=== PATIENT | male | born 1950 | race Caucasian/White ===

== ENCOUNTER 2019-12-22 16:32 | Inpatient (IN) | payer MEDICARE ==
--- OUTSIDE RECORDS SUMMARY | 2019-12-22 17:09 | XMS REPORT | Clinical Summary ---
:1950 Author Organization [facility] Address [address] [place] [address] Care Team Providers Name Role Phone Pcp Primary Care Provider Unavailable Allergies Active Allergy Reactions Severity Noted Date Comments Lisinopril Itching High 12/15/2019 RASH Medications Medication Sig Dispensed Refills Start Date End Date Status atorvastatin (LIPITOR) Take 80 mg by 0 Active 80 MG tablet mouth daily. alendronate (FOSAMAX) Take 35 mg by 0 Active 35 MG tablet mouth every 7 days Take in the morning with a full glass of water, on an empty stomach, and do not take anything else by mouth or lie down for the next 30 min. . clopidogreL (PLAVIX) 75 Take 75 mg by 0 Active mg tablet mouth daily. aspirin 81 MG EC tablet Take 81 mg by 0 Active mouth daily. hydroxychloroquine Take by mouth 0 Active (PLAQUENIL) 200 mg daily. tablet losartan (COZAAR) 100 Take 100 mg by 0 Active MG tablet mouth daily. metoprolol tartrate Take 25 mg by 0 Active (LOPRESSOR) 25 MG mouth 2 (two) tablet times daily. predniSONE (DELTASONE) Take 5 mg by 0 Active 5 MG tablet mouth daily. tamsulosin (FLOMAX) 0.4 Take 0.4 mg by 0 Active mg Cap 24 hr capsule mouth daily. pantoprazole (PROTONIX) Take 20 mg by 0 Active 20 MG tablet mouth daily. methotrexate 2.5 MG Take by mouth 0 Active tablet once a week. folic acid (FOLVITE) 1 Take 1 mg by 0 Active MG tablet mouth daily. etanercept (ENBREL Inject 0 A ctive SUBQ)Indications: once subcutaneously. every 2 weeks acetaminophen (TYLENOL) Take 2 tablets 30 tablet 0 12/21/2019 Active 325 MG tablet (650 mg total) by 0 mouth every 6 (six) hours as needed for Pain for up to 10 days. docusate sodium Take 1 capsule 10 capsule 0 12/21/2019 02 Active (COLACE) 100 MG capsule (100 mg total) by 0 mouth 2 (two) times daily as needed for Constipation for up to 10 days. traMADoL (ULTRAM) 50 mg Take 1 tablet (50 28 tablet 0 12/21/19 20 Active tablet mg total) by 0 mouth every 6 (six) hours as needed for up to 10 days. Max Daily Amount: 200 mg gabapentin (NEURONTIN) Take 1 capsule 30 capsule 0 12/21/2019 Active 100 MG capsule (100 mg total) by 0 mouth 3 (three) times daily for 10 days. 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 12/20/201912/19 Encounters Date Type Specialty Care Team Description 12/22/2019 Outside Orders [facility] Val[place]il, Woody Mass of upp er lobe of right lung (Primary Dx); Scheduling ALLISON Roman Post-operative state 12/20/2019 Surgery Jeffy Carrera THORACOSCOPY Dylon Chun, (VATS),LOBE CTOMY W/ OR W/OUT LYMPADENECTOMY 12/20/2019 Anesthesia Event Ranjeet Curiel 12/20/2019 - Hospital Intensive Care Jeffy Carrera 12/21/2019 Encounter Dylon Chun MD 12/15/2019 [facility] Cardiology Jeffy Carrera Jr., MD 12/15/2019 Hospital Pre-Admission Jeffy Carrera Pre-op test ing Encounter Testing Dylon Chun MD 12/15/2019 Hospital Pre-Admission Encounter Testing 12/15/2019 [facility] Jeffy Carrera Jr., MD 12/15/2019 Travel 12/12/2019 Orders Only Intensive Care Valayil, Woody Pre-op test ALLISON Mcgrath (Primary Dx) after 12/21/2018 Social History Tobacco Use Types Packs/Day Years Used Date Former Smoker 1 30 Quit: 06/26/20 Smokeless Tobacco: Never Used Alcohol Use Drinks/Week oz/Week Comments No Alcohol Habits Answer Date Recorded How often do you have a drink containing alcohol? Never 12/15/2019 How many drinks containing alcohol do you have on a typical Not asked day when you are drinking? How often do you have six or more drinks on one occasion? No t asked Sex Assigned at Date Recorded Not on file Job Start Date Occupation Industry Not on file Not on file Not on file Travel History Travel Start Travel End No recent travel history available. Last Filed Vital Signs Vital Sign Reading Time Taken Blood Pressure 151/69 12/21/2019 2:00 PM CDT Pulse 61 12/21/2019 2:25 PM CDT Temperature 36.7 C (98 F) 12/21/2019 12:00 PM CDT Respiratory Rate 22 12/21/2019 2:25 PM CDT Oxygen Saturation 93% 12/21/2019 2:25 PM CDT Inhaled Oxygen Concentration - - Weight 82.6 kg (182 lb) 12/21/2019 7:00 AM CDT Height 180.3 cm (5' 11") 12/20/2019 5:37 AM CDT Body Mass Index 25.38 12/21/2019 7:00 AM CDT Plan of Treatment Not on file Procedures Procedure Name Priority Date/Time Associated Comments Diagnosis INTRAOPERATIVE PATH 12/22/2019 2:30 REPORT - SCAN PM CDT RHYTHM STRIP - SCAN 12/22/2019 10:52 AM CDT TRANSFUSION SERVICE 12/21/2019 6:03 REPORT - SCAN PM CDT XR CHEST 1 VIEW STAT 12/21/2019 1:52 Results for this PORTABLE/BEDSIDE PM CDT procedure a re in the results section. MAGNESIUM Routine 12/21/2019 1:14 Results for this PM CDT procedure are i n the results section. CBC W/PLT COUNT & AUTO Routine 12/21/2019 4:43 R esults for this DIFFERENTIAL AM CDT procedure are i n the results section. CBC W/PLT COUNT & AUTO Routine 12/21/2019 4:43 R esults for this DIFFERENTIAL AM CDT procedure are i n the results section. MAGNESIUM Routine 12/21/2019 4:43 Results for this AM CDT procedure are i n the results section. BASIC METABOLIC PANEL Routine 12/21/2019 4:43 Re sults for this (7) AM CDT procedure are i n the results section. XR CHEST 1 VIEW Routine 12/21/2019 2:11 Results for this PORTABLE/BEDSIDE AM CDT procedure a re in the results section. XR CHEST 1 VIEW Routine 12/20/2019 12:02 Results for this PORTABLE/BEDSIDE PM CDT procedure a re in the results section. PREPARE RBC STAT 12/20/2019 11:50 Results for this AM CDT procedure are i n the results section. HGB/HCT (H&H) - STAT STAT 12/20/2019 8:25 Res ults for this LAB AM CDT procedure are i n the results section. GLUCOSE-STAT LAB STAT 12/20/2019 8:25 Results for this AM CDT procedure are i n the results section. POTASSIUM-STAT LAB STAT 12/20/2019 8:25 Resul ts for this AM CDT procedure are i n the results section. SODIUM NA-STAT LAB STAT 12/20/2019 8:25 Resul ts for this AM CDT procedure are i n the results section. BLOOD GAS, ARTERIAL STAT 12/20/2019 8:25 Resu lts for this AM CDT procedure are i n the results section. RRL CRITICAL LABS STAT 12/20/2019 8:25 Result s for this (ABG,NA,K,H&H,GLUCOSE) AM CDT proce dure are in the results section. BRONCHOSCOPY 12/20/2019 8:00 Nodule of upper AM CDT lobe of right lung THORACOSCOPY 12/20/2019 8:00 Nodule of upper (VATS),LYMPHADENECTOMY AM CDT lobe of right lung THORACOSCOPY 12/20/2019 8:00 Nodule of upper (VATS),LOBECTOMY W/ OR AM CDT lobe of right lung W/OUT LYMPADENECTOMY ABORH, MANUAL STAT 12/20/2019 6:11 Results fo r this AM CDT procedure are i n the results section. POCT-GLUCOSE METER Routine 12/20/2019 5:52 Resul ts for this AM CDT procedure are i n the results section. TRANSFUSION SERVICE 12/16/2019 6:04 REPORT - SCAN PM CDT XR CHEST 2 VIEWS Routine 12/15/2019 4:26 Results for this PM CDT procedure are i n the results section. ECG 12-LEAD Routine 12/15/2019 4:06 PM CDT Procedure Note - Interface, External Ris In - 12/15/2019 4:19 PM CDT Ventricular Rate 56 BPM Atrial Rate 56 BPM P-R Interval 170 ms QRS Duration 120 ms Q-T Interval 434 ms QTC Calculation(Bazett) 418 ms P Hubbard 59 degrees R Hubbard 16 degrees T Hubbard 58 degrees Sinus bradycardia Possible Left atrial enlarge ment Non-specific intra-ventricul ar conduction delay Borderline ECG No previous ECGs available ECG 12-LEAD Routine 12/15/2019 4:06 PM Results for this CDT procedure are i n the results section. CBC W/PLT COUNT & AUTO Routine 12/15/2019 4:03 PM Results for this DIFFERENTIAL CDT procedure are i n the results section. TYPE AND SCREEN, Routine 12/15/2019 4:03 PM Resu lts for this AUTOMATED CDT procedure are i n the results section. PT/APTT Routine 12/15/2019 4:03 PM Results for this CDT procedure are i n the results section. COMPREHENSIVE METABOLIC Routine 12/15/2019 4:03 PM Results for this PANEL CDT procedure are i n the results section. CBC W/PLT COUNT & AUTO Routine 12/15/2019 4:03 PM Results for this DIFFERENTIAL CDT procedure are i n the results section. SARS-COV2/RT-PCR ([facility] Routine 12/15/2019 4:03 PM Pre-op test ing Results for this & REF LABS) CDT procedure are i n the results section. after 12/21/2018 Results INTRAOPERATIVE PATH REPORT - SCAN (12/22/2019 2:30 PM CDT) Narrative Performed At This result has an attachment that is no t available. RHYTHM STRIP - SCAN (12/22/2019 10:52 AM CDT) Narrative Performed At This result has an attachment that is no t available. TRANSFUSION SERVICE REPORT - SCAN (12/21/2019 6:03 PM CDT)Only the most recent of2 resultswithin the time period is included. Narrative Performed At This result has an attachment that is no t available. XR chest 1 view portable / bedside (12/21/2019 1:52 PM CDT)Only the most recent of3 resultswithin the time period is included. Specimen Narrative Performed At FINAL REPORT [facility] Chest one view. Clinical history: s/p ChT removal Comparison: 12/21/2019 Discussion: A frontal chest is provided. Cardiomediastinal contours are unchanged . A right chest tube has been removed. There is volume loss in the right lung. No pneumothorax. No new consolidation. No large effusion. Signed: Madhav Daly MD Report Verified Date/Time:12/21/2019 14:21:04 Reading Location: [facility] Radiology Reading Room Procedure Note Interface, External Ris In - 12/21/2019 2:23 PM CDT FINAL REPORT Chest one view. Clinical history: s/p ChT removal Comparison: 12/21/2019 Discussion: A frontal chest is provided. Cardiomediastinal contours are unchanged . A right chest tube has been removed. There is volume loss in the right lung. No pneumothorax. No new consolidation. No large effusion. Signed: Madhav Daly MD Report Verified Date/Time: 12/21/2019 1 4:21:04 Reading Location: [facility] Radiology Reading Room Performing Organization Address City/State/Zipcode Phone Number GE RIS Magnesium (12/21/2019 1:14 PM CDT)Only the most recent of2 resultswithin the time period is included. Magnesium 2.6 1.6 - 2.6 mg/dL [facility] Specimen Blood Narrative Performed At Casino Floor Runner ID - PIAYA L [facility] ICA CENTER Performing Organization Address City/State/Zipcode Phone Number [address] [address] CENTER CBC with platelet count + automated diff (12/21/2019 4:43 AM CDT)Only the most recent of2 resultswithin the time period is included. WBC 5.7 3.5 - 10.5 K/L [facility] H [facility] RBC 3.14 (L) 4.63 - 6.08 M/L [facility] Hemoglobin 9.2 (L) 13.7 - 17.5 GM/DL [facility] Hematocrit 28.4 (L) 40.1 - 51.0 % [facility] MCV 90.4 79.0 - 92.2 fL [facility] MCH 29.3 25.7 - 32.2 pg [facility] MCHC 32.4 32.3 - 36.5 GM/DL [facility] RDW 16.8 (H) 11.6 - 14.4 % [facility] Platelets 159 150 - 450 K/CU MM [facility] MPV 9.8 9.4 - 12.4 fL [facility] nRBC 0 0 - 0 /100 WBC [facility] % Neutros 84 % [facility] % Lymphs 10 % [facility] % Monos 5 % [facility] % Eos 0 % [facility] % Baso 0 % [facility] # Neutros 4.80 1.78 - 5.38 K/L [facility] # Lymphs 0.57 (L) 1.32 - 3.57 K/L [facility] # Monos 0.31 0.30 - 0.82 K/L [facility] # Eos 0.00 (L) 0.04 - 0.54 K/L [facility] # Baso 0.01 0.01 - 0.08 K/L [facility] Immature Granulocytes-Relative 1 0 - 1 % C HI [facility] Specimen Blood Performing Organization Address City/State/Zipcode Phone Number [facility] [address] [place] [address] CENTER Basic Metabolic Panel (12/21/2019 4:43 AM CDT) Sodium 136 136 - 145 meq/L [facility] Potassium 4.2 3.5 - 5.1 meq/L [facility] Chloride 103 98 - 107 meq/L [facility] CO2 27 22 - 29 meq/L [facility] BUN 12 7 - 21 mg/dL [facility] Creatinine 0.89 0.57 - 1.25 mg/dL [facility] Glucose 201 (H) 70 - 105 mg/dL [facility] Calcium 8.6 8.4 - 10.2 mg/dL [facility] EGFR 85Comment: ESTIMATED GFR IS mL/min/1.73 sq m [facility] NOT ACCURATE CREATININE [facility] CLEARANCE IN PREDICTING GLOMERULAR FILTRATION RATE. ESTIMATED GFR IS NOT APPLICABLE FOR DIALYSIS PATIENTS. Specimen Blood Narrative Performed At Casino Floor Runner ID - CED Saleem [facility] ICAL CENTER Performing Organization Address [facility] Phone Number [address] [address] CENTER Prepare RBC (12/20/2019 11:50 AM CDT) CROSSMATCH COMPATIBLE SAFETRACE TX Unit ABO O Pos SAFETRACE TX UNIT NUMBER [id number] SAFETRACE TX Status RETURNED FROM ISSUE SAFETRACE TX Blood Bank Product RED BLOOD CELLS SAFETRACE TX PRODUCT CODE [id number] SAFETRACE TX CROSSMATCH COMPATIBLE SAFETRACE TX Unit ABO O Pos SAFETRACE TX UNIT NUMBER [id number] SAFETRACE TX Status RETURNED FROM ISSUE SAFETRACE TX Blood Bank Product RED BLOOD CELLS SAFETRACE TX PRODUCT CODE [id number] SAFETRACE TX Performing Organization Address City/[facility] Cent[facility]ode Phone Number SAFETRACE TX Potassium-Stat Lab (12/20/2019 8:25 AM CDT) Potassium 3.5 (L) 3.6 - 5.5 meq/L [facility] Specimen Blood, Arterial Performing Organization Address City/[facility] Centercode Phone Number [address] [address] CENTER Sodium Na-Stat Lab (12/20/2019 8:25 AM CDT) Sodium 138 136 - 145 meq/L [facility] Specimen Blood, Arterial Performing Organization Address [facility] Centercode Phone Number [address] [address] [place] Glucose-Stat Lab (12/20/2019 8:25 AM CDT) Glucose 106 70 - 110 mg/dL [facility] Specimen Blood, Arterial Performing Organization Address City/[facility] Centercode Phone Number [address] [address] [place] HGB/HCT (H&H)-Stat Lab (12/20/2019 8:25 AM CDT) Hemoglobin 10.1 (L) 13.0 - 16.8 g/dL [facility] Hematocrit 30.0 (L) 40.0 - 50.0 % [facility] Specimen Blood, Arterial Performing Organization Address [facility] Phone Number [address] [address] [place] Blood gas, arterial (12/20/2019 8:25 AM CDT) pH, Arterial 7.42 7.35 - 7.45 [facility] pCO2, Arterial 40 35 - 45 mmHg [facility] pO2, Arterial 259 (H) 80 - 90 mmHg [facility] O2 Sat, Arterial 99.6 (H) 96.0 - 97.0 % [facility] HCO3, Arterial 26 21 - 29 mmol/L [facility] Base Excess, Arterial 0.9 -2.0 - 3.0 mmol/L [facility] Patient Temperature 35.8 C [facility] FIO2 100.0 % [facility] Specimen Blood, Arterial Performing Organization Address [facility]/State/Zipcode Phone Number [address] [address] CENTER ABORH, manual (12/20/2019 6:11 AM CDT) ABO Grouping O [facility] Rh Factor POS [facility] Specimen Blood Performing Organization Address City/State/Zipcode Phone Number [address] [address] POC-Glucose meter (12/20/2019 5:52 AM CDT) POC-Glucose Meter 128 (H)Comment: : TESTED 70 - 110 mg/dL [facility] AT [address] [facility], [address]: Casino Floor Runner/Bicycle Service Technician ID = [id number] for TORSTEN, LACRYSTAL Specimen Blood Performing Organization Address City/[facility] Centercode Phone Number [address] [address] [place] XR chest 2 views (12/15/2019 4:26 PM CDT) Specimen Narrative Performed At FINAL REPORT GE RIS TECHNIQUE: Frontal and lateral chest rad iographs dated 12/15/2019. CLINICAL HISTORY: PreSurgery 12/20/2019 COMPARISON STUDY: None FINDINGS: Lungs are clear. No pleural effusion or pneumothorax. Cardiomediastinal silhouette is normal i n size. No pulmonary edema. Bones are osteopenic. Degenerative hoyt es are seen in the spine. IMPRESSION: No focal consolidation. Signed: Reinaldo Polanco MD Report Verified Date/Time:12/15/2019 16:37:07 Reading Location: [address] Radiolog y Reading Room Procedure Note Interface, External Ris In - 12/15/2019 4:39 PM CDT FINAL REPORT TECHNIQUE: Frontal and lateral chest rad iographs dated 12/15/2019. CLINICAL HISTORY: PreSurgery 12/20/2019 COMPARISON STUDY: None FINDINGS: Lungs are clear. No pleural effusion or pneumothorax. Cardiomediastinal silhouette is normal i n size. No pulmonary edema. Bones are osteopenic. Degenerative hoyt es are seen in the spine. IMPRESSION: No focal consolidation. Signed: Reinaldo Polanco MD Report Verified Date/Time: 12/15/2019 1 6:37:07 Reading Location: [address] Radiolog y Reading Room Performing Organization Address [facility] Phone Number GE RIS ECG 12 lead (12/15/2019 4:06 PM CDT) Specimen Narrative Performed At Ventricular Rate 56 BPM GE MUSE Atrial Rate 56 BPM P-R Interval 170 ms QRS Duration 120 ms Q-T Interval 434 ms QTC Calculation(Bazett) 418 ms P Hubbard 59 degrees R Hubbard 16 degrees T Hubbard 58 degrees Sinus bradycardia Left atrial enlargement Right bundle branch block Borderline ECG No previous ECGs available Confirmed by MD Munroe Roberto ([id number]) on 12/16 7:38:31 AM Procedure Note Interface, External Ris In - 12/17/2019 7:38 AM CDT Ventricular Rate 56 BPM Atrial Rate 56 BPM P-R Interval 170 ms QRS Duration 120 ms Q-T Interval 434 ms QTC Calculation(Bazett) 418 ms P Hubbard 59 degrees R Hubbard 16 degrees T Hubbard 58 degrees Sinus bradycardia Left atrial enlargement Right bundle branch block Borderline ECG No previous ECGs available Confirmed by MD Munroe Roberto ([id number]) on 12/17/2019 7:38:31 AM Performing Organization Address [facility] Phone Number GE MUSE SARS-CoV2/RT-PCR (HS & Ref Labs) (12/15/2019 4:03 PM CDT) SARS-COV2/RT-PCR Negative Not Detected, Negative [facility] NON -INTERFACED REFERENCE LABS SARS-COV-[address] [facility] N ON-INTERFACED REFERENCE LABS Specimen Other Performing Organization Address [facility] Phone Number [facility] NON-INTERFACED REFERENCE LABS Type and screen, automated (12/15/2019 4:03 PM CDT) ABO/RH AUTOMATED (BEAKER) O POSITIVE [facility] Ab Scrn NEGATIVE [facility] Specimen Blood Performing Organization Address [facility]/Zipcode Phone Number [facility] [address] [place] [address] PT/aPTT (12/15/2019 4:03 PM CDT) Protime 13.3 11.9 - 14.2 seconds [facility] INR 1.0 <=5.9 [facility] PTT 33.0 22.5 - 36.0 seconds [facility] Specimen Blood Narrative Performed At Effective 11/30/2018: PT Reference Range [facility] Change New: 11.9-14.2Previous: 11.7-14.7 RECOMMENDED COUMADIN/WARFARIN INR THERAPY RANGES STANDARD DOSE: 2.0-3.0Includes: PROPHYLAXIS for venous thrombosis, systemic embolization; TREATMENT for venous thrombosis and/or pulmonary embolus. HIGH RISK: Target INR is 2.5-3.5 for patients wiht mechanical heart valves. Performing Organization Address [facility]/Zipcode Phone Number [address] [address] [place] Comprehensive metabolic panel (12/15/2019 4:03 PM CDT) Protein, Total 7.7 6.0 - 8.3 gm/dL [facility] Albumin 4.1 3.5 - 5.0 g/dL [facility] Alkaline Phosphatase 99 40 - 150 U/L [facility] Total Bilirubin 0.7 0.2 - 1.2 mg/dL [facility] Sodium 140 136 - 145 meq/L [facility] Potassium 3.5 3.5 - 5.1 meq/L [facility] Chloride 103 98 - 107 meq/L [facility] CO2 28 22 - 29 meq/L [facility] BUN 16 7 - 21 mg/dL [facility] Creatinine 1.05 0.57 - 1.25 mg/dL [facility] Glucose 91 70 - 105 mg/dL [facility] Calcium 9.2 8.4 - 10.2 mg/dL [facility] AST 19 5 - 34 U/L [facility] ALT 23 6 - 55 U/L [facility] EGFR 70Comment: ESTIMATED GFR mL/min/1.73 sq m [facility] IS NOT ACCURATE [facility] CREATININE CLEARANCE IN PREDICTING GLOMERULAR FILTRATION RATE. ESTIMATED GFR IS NOT APPLICABLE FOR DIALYSIS PATIENTS. Specimen Blood Narrative Performed At Casino Floor Runner ID - BS [facility] CENTER Performing Organization Address City/State/[facility] Centercode Phone Number [facility] [address] [place], [place] [id number] CENTER after 12/21/2018 Insurance Payer Benefit Plan / Group Subscriber ID Type Phone A ddress [facility] - MEDICARE AARP/MEDICARE COMPLETE xxxxxxxxx MGD CARE Advance Directives For more information, please contact:[facility] CenterErasmo CelisLifePoint HealthAdwhus[address] [place], [place] [phone] Code Status Date Activated Date Inactivated Comments Full Code 12/20/2019 5:45 AM 12/21/2019 9:59 PM This code status was determined by: Patient
--- OUTSIDE RECORDS SUMMARY | 2019-12-22 17:10 | XMS REPORT | Continuity of Care Document ---
:1950 Author Organization [facility] Care Team Providers Name Role Phone [facility] Unavailable Un available Problems Problem Status Onset Classification Date Comments Sourc e Date Reported 379.[address] MACULAR 4 HOLE Medications Medication Details Route Status Patient Ordering Order Source Instructions Provider Date Phenylephrine 1 drp, Inactive MH Hydrochloride 25 Route: [address] MG/ML Ophthalmic Operative Solution Eye, Q5Min, Drug form: SOLN, Start date: 10/05/13 8:35:00, Duration: 3 doses or times, Stop date: 10/05/13 8:45:00(Miguel e as: Stu-Synephr ine Ophthalmic) Tropicamide 10 1 drp, Inactive MH MG/ML Ophthalmic Route: [address] Solution Operative [Mydriacyl] Eye, Q5Min, Drug form: SOLN, Start date: 10/05/13 8:35:00, Duration: 3 doses or times, Stop date: 10/05/13 8:45:00(Miguel e As: Mydriacyl, Opticyl, Tropicacyl) Cyclopentolate 1 drp, Inactive MH hydrochloride 10 Route: [address] MG/ML Ophthalmic Operative Solution Eye, Q5Min, [Cyclogyl] Drug form: SOLN, Start date: 10/05/13 8:35:00, Duration: 3 doses or times, Stop date: 10/05/13 8:45:00(Miguel e As: Cyclogyl) Allergies, Adverse Reactions, Alerts No Known Medication Allergies Immunizations No Data Provided for This Section Results Order Name Results Value Reference Date Interpretation Comments [place] [facility] Range ELECTROLYTES AGAP 8.9 10.0 - 04/ MH 20.0 /2013 [place] ELECTROLYTES eGFR 91 10/04 <sup>1</sup>R esult [facility] Comment: The eGFR is calculated using the CKD-EPI formula. In most young, healthy individuals the eGFR will be >90 mL/min/1.73m2 . The eGFR declines with age. An eGFR of 60-89 may be normal in some populations, particularly the elderly, for whom the CKD-EPI formula has not been extensively validated. Use of the eGFR is not recommended in the following populations:& lt;br/>
I ndividuals with unstable creatinine concentration s, including patients and those with serious co-morbid conditions.<b r/>
Patie nts with extremes in muscle mass or diet.

The data above are obtained from the National Kidney Disease Education Program (NKDEP) which additionally recommends that when the eGFR is used in patients with extremes of body mass index for purposes of drug dosing, the eGFR should be multiplied by the estimated BMI. ELECTROLYTES Creatinine 0.9 0.5 - 1.4 10/04 [facility] ELECTROLYTES BUN 18 7 - 22 10/04 [facility] ELECTROLYTES Glucose Lvl 80 70 - 99 10/04 <sup>2</sup>I M H nterpretive [facility] Data: Adult reference range values reflect the clinical guidelines
of the [employer]. ELECTROLYTES Potassium 3.9 3.5 - 5.1 10/04 [facility] ELECTROLYTES Chloride Lvl 106 95 - 109 10/04 [facility] ELECTROLYTES CO2 27 24 - 32 10/04 [facility] ELECTROLYTES Calcium Lvl 9.1 8.5 - 10.5 10/04 [facility] ELECTROLYTES Sodium Lvl 138 135 - 145 10/04 [facility] HEMATOLOGY Platelet 193 133 - 450 10/04 [facility] HEMATOLOGY MCHC 34.6 32.0 - 10/04 36.0 /2013 [facility] HEMATOLOGY RDW 12.8 11.5 - 10/04 14.5 /2013 [facility] HEMATOLOGY MCV 86.6 80.0 - 10/04 94.0 /2013 [facility] HEMATOLOGY MPV 8.5 7.4 - 10.4 10/04 [facility] HEMATOLOGY MCH 30.0 27.0 - 10/04 31.0 [facility] HEMATOLOGY Hct 41.3 42.0 - 10/04 54.0 /2013 [facility] HEMATOLOGY Hgb 14.3 14.0 - 10/04 18.0 [facility] HEMATOLOGY RBC 4.76 4.70 - 10/04 MH 6.10 /2013 [facility] HEMATOLOGY WBC 5.9 3.7 - 10.4 04/ /2013 [facility] HEMATOLOGY Eosinophils 0.1 0.0 - 0.5 04/ MH # /2013 [facility] HEMATOLOGY Basophils # 0.0 0.0 - 0.2 04/ /2013 [facility] HEMATOLOGY Lymphocytes 27.4 20.0 - 04/ MH 40.0 /2013 [facility] HEMATOLOGY Monocytes 5.0 2.0 - 12.0 04/ [facility] HEMATOLOGY Lymphocytes 1.6 1.0 - 5.5 / MH # /2013 [facility] HEMATOLOGY Monocytes # 0.3 0.0 - 0.8 04/ [facility] HEMATOLOGY Segs 64.6 45.0 - 04/ MH 75.0 /2013 [facility] HEMATOLOGY Basophils 0.6 0.0 - 1.0 10/04 [facility] HEMATOLOGY Segs-Bands # 3.8 1.5 - 8.1 10/04 [facility] HEMATOLOGY Eosinophils 2.4 0.0 - 4.0 10/04 [facility] Pathology Reports No Data Provided for This Section Diagnostic Reports No Data Provided for This Section Consultation Notes No Data Provided for This Section Discharge Summaries No Data Provided for This Section History and Physicals No Data Provided for This Section Vital Signs Vital Sign Value Date Comments Source Diastolic (mm Hg) 74 10/05/2013 [facility] Systolic (mm Hg) 144 10/05/2013 [facility] t Respitory Rate 20 10/05/2013 [facility] Systolic (mm Hg) 144 10/05/2013 [facility] t Diastolic (mm Hg) 74 10/05/2013 [facility] Respitory Rate 11 10/05/2013 [facility] Respitory Rate 11 10/05/2013 [facility] Systolic (mm Hg) 153 10/05/2013 [facility] t Diastolic (mm Hg) 86 10/05/2013 [facility] Heart Rate 58 10/05/2013 [facility] Heart Rate 58 10/04/2013 [facility] BMI Calculated 24.76 10/04/2013 [facility] Height 182.88 cm 10/04/2013 [facility] Weight 82.8 10/04/2013 [facility] Encounters Location Location Encounter Encounter Reason Attending ADM DC Stat us Source Details Type Number For Provider Date Date Visit [id number] _MAPID: Mehrdad 10/05 10/05 [facility] [id number] [facility] [place] [facility] [id number] Procedures Procedure Code Date Perfomer Comments Source Cataract surgery [id number] [facility] Assessment and Plan No Data Provided for This Section Plan of Care No Data Provided for This Section Social History Social History Date Source Social History TypeResponse 10/04/2013 [facility] Substance Abuse 1 Alcohol Past Smoking Status Use: Current every day smoker. Tobacco smoke exposure: None. Did the Patient Smoke Cigarettes Anytime During the Last 365 Days? Yes. Cessation Counseling Provided? No. 1no Family History No Data Provided for This Section Advance Directives No Data Provided for This Section Functional Status No Data Provided for This Section
--- OUTSIDE RECORDS SUMMARY | 2019-12-22 17:14 | XMS REPORT | Continuity of Care Document ---
:[address] [facility] t Address [address] [place] [address] Care Team Providers Name Role Phone Pcp Primary Care Physician Unavailable Abel Herrera Attending Clinician Gaudencio Carrera MD Attending Clinician Moisés Attending Clinician Unavailable GAUDENCIO CARRERA Attending Clinician Unavailable Debi RAJPUT, W Attending Clinician ELAINA Attending Clinician Unavailable Harper Garsia Attending Clinician GAUDENCIO CARRERA Admitting Clinician Unavailable Payers Payer Name Policy Type Policy Number Effective Expiration Source Date Date [facility] - xxxxxxxxx [facility] MEDICARE MGD [facility] - CAREAARP/MEDICARE Medical COMPLETExxxxxxxxx Center Problems Condition Condition Condition Status Onset Resolution Last Treating Co mments Source Name Details Category Date Date Treatment Clinician Date Nodule of Nodule of Disease Active [facility] right lung right lung 12-19 Mayi kes - 00:00: Medical 00 Center 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 12-19 Luke [facility] - s/p R VATS s/p R VATS 00:00: Me dical RUL RUL 00 Center lobectomy lobectomy 12/20/2019 12/20/2019 379.23 Diagnosis Active 2013-10-05 Mem oria MACULAR - 08:16:00 l HOLE 379.23 00:00: [place] MACULAR 00 HOLE Active 10/02/2013 [facility] History of History of Problem Resolve Univers coronary coronary d ity of artery artery [place] disease disease Physici ans Polyarthra Polyarthra Problem Active U nivers lgia lgia ity of [place] Physici ans Osteoarthr Osteoarthr Problem Active U nivers itis of itis of ity of knees, knees, [place] bilateral bilateral Phys ici ans Leukopenia Leukopenia Problem Active U nivers ity of [place] Physici ans Elevated Elevated Problem Active Unive rs C-reactive C-reactive it y of protein protein [place] (CRP) (CRP) Physici ans Elevated Elevated Problem Active Unive rs sed rate sed rate ity of [place] Physici ans Shoulder Shoulder Problem Active Unive rs pain, pain, [place] bilateral [place] Coronary Coronary Problem Active Unive rs heart heart ity of disease disease [place] Physici ans Bilateral Bilateral Problem Active Uni vers knee pain knee pain ity of [place] Physici ans Swelling Swelling Problem Active Unive rs of both of both ity of knees knees [place] Physici ans Pain and Pain and Problem Active Unive rs swelling swelling ity of of right of right [place] wrist wrist Physici ans Rheumatoid Rheumatoid Problem Active U nivers arthritis arthritis [place] involving involving [place] multiple multiple Physic i sites with sites with an s positive positive rheumatoid rheumatoid factor factor Long-term Long-term Problem Active Uni vers use of use of ity of high-risk high-risk [place] medication medication Ph ysici ans Allergies, Adverse Reactions, Alerts Allergy Allergy Status Severity Reaction(s) Onset Inactive Treating Comm ents Source Name Type Date Date Clinician Lisinoberny Hendersonensi Active Itching RASH [facility] - adverse 00:00: Medical reaction 00 Center s Family History Family Member Diagnosis Comments Start Date Stop Date Source Unknown Family Family history of Family History University of Member rheumatoid [place] Physicia ns arthritis Social History Social Habit Start Date Stop Date Quantity Comments Source History SDOH [facility] Alcohol Std Drinks Medica l Center History SDOH [facility] - Alcohol Binge Medical Manju ter Sex Assigned At [facility] Cigarettes smoked 2019-12-20 2019-12-[address] [facility] [address] [facility] - current (pack per 00:00:00 00:00:00 Medical Center day) - Reported Cigarette 2019-12-20 2019-12-[address] [facility] - pack-years 00:00:00 00:00:00 Medical Center History SDOH 2019-12-15 2019-12-[address] [facility] - Alcohol Frequency 00:00:00 00:00:00 Medical Center History of tobacco 2019-06-26 [facility] smoker [facility] use [facility] Medical Center Social History 2013-10-04 2013-10-04 [facility] Frank almaguer 16:25:46 16:25:46 Smoking Status Start Date Stop Date Source Smoker (finding) [facility] Physicians Former smoker 2019-12-20 00:00:00 2019-12-20 00:00:[address] [facility] Medications Ordered Filled Start Stop Current Ordering Indication Dosage Frequency Signature Comments Components Source Medication Medication Date Date Medication? Clinician (SIG) Name Name acetaminoph 2019- Yes 650mg Take [address] [facility] 12-20 tablets [facility] - (TYLENOL) 00:00: 23:59 (650 mg Medi marcela 325 MG 00 :00 total) by Center tablet mouth every 6 (six) hours as needed for Pain for up to 10 days. docusate 2019- Yes 100mg Take 1 [facility] t sodium 12-20 capsule [facility] - (COLACE) 00:00: 23:59 (100 mg Medic al 100 MG 00 :00 total) by Center capsule mouth 2 (two) times daily as needed for Constipati on for up to 10 days. traMADoL 2019- Yes 50mg Take [address] (ULTRAM) 50 12-20 tablet (50 L ukes - mg tablet 00:00: 23:59 mg total) Me dical 00 :00 by mouth Center every 6 (six) hours as needed for up to 10 days. Max Daily Amount: 200 mg gabapentin 2020- Yes 100mg [id number] Take [address] (NEURONTIN) 12-20 [id number] capsule [facility] - 100 MG 00:00: 23:59 3D (100 mg Medical capsule 00 :00 total) by Center mouth 3 (three) times daily for 10 days. etanercept Yes Inject [facility] t (ENBREL 6-12 subcutaneo [facility] - SUBQ) 13:25: usly. Medical [address] [place] losartan Yes 100mg QD Take [address] (COZAAR) 6-12 mg by [facility] - 100 MG 13:25: mouth Medical tablet 45 daily. [place] metoprolol Yes 25mg Q.5D Take [address] tartrate 6-12 by mouth 2 [facility] - (LOPRESSOR) 13:25: (two) Medic al 25 MG 45 times Center tablet daily. predniSONE 2020-0 Yes 5mg QD Take [address] (DELTASONE) 6-12 by mouth Luke s - 5 MG tablet 13:25: daily. Medi marcela [address] [place] tamsulosin 2020-0 Yes .4mg QD Take 0.[address] (FLOMAX) 6-12 mg by [facility] - 0.4 mg Cap 13:25: mouth Medica l 24 hr 45 daily. Center capsule pantoprazol 2020-0 Yes 20mg QD Take [address] e 6-12 by mouth [facility] - (PROTONIX) 13:25: daily. Medic al 20 MG 45 Center tablet methotrexat 2020-0 Yes Q7D Take by [facility] e 2.5 MG 6-12 mouth once [facility] - tablet 13:25: a week. [address] folic acid 2020-0 Yes 1mg QD Take [address] (FOLVITE) 1 6-12 by mouth Luke s - MG tablet 13:25: [facility]. [facility] [address] [place] atorvastati 2020-0 Yes 80mg QD Take [address] n (LIPITOR) 6-12 by mouth Luke s - 80 MG 13:25: daily. Medical tablet [address] [place] alendronate 2020-0 Yes 35mg Take [address] (FOSAMAX) 6-12 by mouth [facility]ukes - 35 MG 13:25: every 7 Medical tablet 44 days Take Center in the morning with a full glass of water, on an empty stomach, and do not take anything else by mouth or lie down for the next 30 min. . clopidogreL 2020-0 Yes 75mg QD Take [address] (PLAVIX) 75 6-12 by mouth Luke s - mg tablet 13:25: [facility]. [facility] [place] aspirin 81 2020-0 Yes 81mg QD Take [address] MG EC 6-12 by mouth [facility] - tablet 13:25: daily. [address] hydroxychlo 2020-0 Yes QD Take by [facility] roquine 6-12 mouth [facility] - (PLAQUENIL) 13:25: daily. Medi marcela 200 mg 44 Center tablet Enbrel Mini Enbrel Mini 2020-0 Yes FAYYAZ INJECT Univers 50 MG/ML 50 MG/ML 5-28 AHMED M.D. 50MG i ty of Subcutaneou Subcutaneou 00:00: SUBCUTANEO [place] s Solution s Solution 00 USLY ONCE Physici Cartridge Cartridge A WEEKLY a ns USING AUTO TOUCH DEVICE. Alendronate Alendronate 2019-0 Yes FAYYAZ TAKE 1 Univers Sodium 35 Sodium 35 4-30 AHMED M.D. TABLET ity of MG Oral MG Oral 00:00: ONCE [place] Tablet Tablet 00 WEEKLY. Physici ans predniSONE predniSONE 2019-0 Yes FAYYAZ Take 2 Univers 5 MG Oral 5 MG Oral 4-29 AHMED M.D. tablet and ity of Tablet Tablet 00:00: 1/2 tablet Arya as 00 daily. Physici ans Hydroxychlo Hydroxychlo 2019-0 Yes FAYYAZ 1 Q0.5D TAKE 1 Univers roquine roquine 4-06 AHMED M.D. TABLET AND ity of Sulfate 200 Sulfate 200 00:00: 1/2 TABLET [place] MG Oral MG Oral 00 DAILY. Physici Tablet Tablet ans Meloxicam Meloxicam 2019-0 Yes FAYYAZ 1 QD TAKE 1 Univers 15 MG Oral 15 MG Oral 3-30 AHMED M.D. TABLET ity of Tablet Tablet 00:00: DAILY. Physici ans Pantoprazol Pantoprazol 2019-0 Yes FAYYAZ QD TAKE 1 Univers e Sodium 20 e Sodium 20 3-30 AHMED M.D. TABLET ity of MG Oral MG Oral 00:00: DAILY. [place] Tablet Tablet 00 Physici Delayed Delayed ans Release Release Folic Acid Folic Acid 2018-07 Yes FAYYAZ QD TAKE 1 Univers 1 MG Oral 1 MG Oral 1-12 AHMED M.D. TABLET ity of Tablet Tablet 00:00: DAILY [place] 00 DIRECTED. Physici ans Methotrexat Methotrexat 2018-07 Yes FAYYAZ Take 8 Univers e Sodium e Sodium 1-12 AHMED M.D. tablets a ity of 2.5 MG Oral 2.5 MG Oral 00:00: week. [place] Tablet Tablet Physici ans Phenylephri No 1 drp, Jeronimo edwin ne 10-05 Route: l Hydrochlori 13:35: Operative H ermann de 25 MG/ML 00 Eye, Ophthalmic Q5Min, Solution Drug form: SOLN, Start date: 10/05/13 8:35:00, Duration: 3 doses or times, Stop date: 10/05/13 8:45:00([facility] as: Stu-Syneph rine Ophthalmic ) Tropicamide No 1 drp, Jeronimo edwin 10 MG/ML 10-05 Route: l Ophthalmic 13:35: Operative He rmann Solution 00 Eye, [Mydriacyl] Q5Min, Drug form: SOLN, Start date: 10/05/13 8:35:00, Duration: 3 doses or times, Stop date: 10/05/13 8:45:00([facility] As: Mydriacyl, Opticyl, Tropicacyl ) Cyclopentol No 1 drp, Jeronimo edwin ate 10-05 Route: l hydrochlori 13:35: Operative H ermann de 10 MG/ML 00 Eye, Ophthalmic Q5Min, Solution Drug form: [Cyclogyl] SOLN, Start date: 10/05/13 8:35:00, Duration: 3 doses or times, Stop date: 10/05/13 8:45:00([facility] As: Cyclogyl) Meloxicam Meloxicam Yes M.A. Unive rs TABS TABS ity of [place] Physici ans Atorvastati Atorvastati Yes M.A. U nivers n Calcium n Calcium ity o f TABS TABS [place] Physici ans Metoprolol Metoprolol Yes M.A. Uni vers Tartrate 25 Tartrate 25 i ty of MG Oral MG Oral [place] Tablet Tablet Physici ans Aspirin 81 Aspirin 81 Yes M.A. Uni vers MG TABS MG TABS ity of [place] Physici ans Clopidogrel Clopidogrel Yes M.A. U nivers Bisulfate Bisulfate ity o f 75 MG Oral 75 MG Oral Arya as Tablet Tablet Physici ans Tamsulosin Tamsulosin Yes M.A. Uni vers HCl - 0.4 HCl - 0.4 ity o f MG Oral MG Oral [place] Capsule Capsule Physici ans Advil TABS Advil TABS Yes M.A. Uni vers ity of [place] Physici ans IBU-Tab 200 IBU-Tab 200 Yes M.A. U nivers MG TABS MG TABS ity of [place] Physici ans Vital Signs Vital Name Observation Time Observation Value Comments Source Heart rate 2019-12-21 14:25:00 61 /min [facility] Respiratory rate 2019-12-21 14:25:00 22 /min [facility] Oxygen saturation in 2019-12-21 14:25:00 93 /min [facility] Arterial blood by Medical Ce nter Pulse oximetry Systolic blood 2019-12-21 14:00:00 151 mm[Hg] [facility] Diastolic blood 2019-12-21 14:00:00 69 mm[Hg] [facility] Body temperature 2019-12-21 12:00:00 36.67 Aniyah [facility] Body weight Measured 2019-12-21 07:00:00 82.555 kg [facility] BMI 2019-12-21 07:00:00 25.38 kg/m2 [facility] Body height 2019-12-20 05:37:00 180.3 cm [facility] Systolic blood 2019-11-28 12:55:00 155 mm[Hg] Univer sity of pressure [place] Physician s Diastolic blood 2019-11-28 12:55:00 76 mm[Hg] Unive rsity of pressure [place] Physician s Heart Rate 2019-11-28 12:55:00 65 /min Universi ty [facility] [place] Physician s Body height 2019-11-28 12:55:00 71 [in_us] Universi ty [facility] [place] Physician s Weight 2019-11-28 12:55:00 160 [lb_av] [facility]i ty [facility] [place] Physician s Body mass index 2019-11-28 12:55:00 22.32 kg/m2 Unive rsity of (BMI) [Ratio] [place] Physicia ns Systolic blood 2019-11-01 10:15:00 185 mm[Hg] Univer sity of pressure [place] Physician s Diastolic blood 2019-11-01 10:15:00 87 mm[Hg] Unive rsity of pressure [place] Physician s Body height 2019-11-01 10:15:00 71 [in_us] Universi ty of [place] Physician s Weight 2019-11-01 10:15:00 160 [lb_av] Universi ty [facility] [place] Physician s Body mass index 2019-11-01 10:15:00 22.32 kg/m2 Unive rsity of (BMI) [Ratio] [place] Physicia ns Heart Rate 2019-11-01 10:15:00 68 /min Universi ty of [place] Physician s BP Systolic 2019-08-01 13:09:00 174 mm[Hg] [facility]i ty [facility] [place] Physician s BP Diastolic 2019-08-01 13:09:00 84 mm[Hg] [facility] [place] [facility] s Height 2019-08-01 13:09:00 71 [in_us] [facility]i ty [facility] [place] Physician s Weight 2019-08-01 13:09:00 160 [lb_av] [facility]i ty [facility] [place] Physician s Body Mass Index 2019-08-01 13:09:00 22.32 kg/m2 Unive rsity of Calculated [place] Physician s Heart Rate 2019-08-01 13:09:00 56 /min Universi ty of [place] Physician s BP Systolic 2019-06-20 13:07:00 187 mm[Hg] [facility]i ty [facility] [place] Physician s BP Diastolic 2019-06-20 13:07:00 83 mm[Hg] [facility] [place] [facility] s Heart Rate 2019-06-20 13:07:00 85 /min [facility] [place] [facility] s Height 2019-06-20 13:07:00 71 [in_us] [facility]i ty [facility] [place] Physician s Weight 2019-06-20 13:07:00 163 [lb_av] Universi ty [facility] [place] Physician s Body Mass Index 2019-06-20 13:07:00 22.73 kg/m2 Unive rsity of Calculated [place] Physician s BP Systolic 2019-05-16 13:19:00 168 mm[Hg] Universi ty of [place] Physician s BP Diastolic 2019-05-16 13:19:00 89 mm[Hg] [facility] ty [facility] [place] [facility] s Height 2019-05-16 13:19:00 71 [in_us] [facility] ty [facility] [place] Physician s Weight 2019-05-16 13:19:00 165 [lb_av] [facility] ty [facility] [place] [facility]ician s Body Mass Index 2019-05-16 13:19:00 23.01 kg/m2 Unive rsity of Calculated [place] Physician s Heart Rate 2019-05-16 13:19:00 83 /min [facility] ty [facility] [place] Physician s BP Systolic 2019-05-04 14:21:00 182 mm[Hg] [facility] [place] [facility] s BP Diastolic 2019-05-04 14:21:00 83 mm[Hg] [facility] [place] [facility] s Height 2019-05-04 14:21:00 71 [in_us] Universi ty [facility] Physician s Weight 2019-05-04 14:21:00 165 [facility]lb_av] [place] [facility] Phys[facility] s Body Mass Index 2019-05-04 14:21:00 23.01 kg/m2 Unive rsity of Calculated [place] Physician s Heart Rate 2019-05-04 14:21:00 79 /min Universi ty [facility] Physician s Diastolic (mm Hg) 2013-10-05 16:15:00 Mem orial [place] Systolic (mm Hg) 2013-10-05 16:15:00 Jeronimo rial Sunil Respitory Rate 2013-10-05 16:15:00 Memori al Sunil Systolic (mm Hg) 2013-10-05 16:00:00 Jeronimo rial [place] Diastolic (mm Hg) 2013-10-05 16:00:00 Mem orial [place] Respitory Rate 2013-10-05 16:00:00 Memori al Sunil Respitory Rate 2013-10-05 15:55:00 Memori al Sunil Systolic (mm Hg) 2013-10-05 15:55:00 Jeronimo rial [place] Diastolic (mm Hg) 2013-10-05 15:55:00 [facility] orial Sunil Heart Rate 2013-10-05 13:30:00 [facility] Heart Rate 2013-10-04 16:27:00 [facility] BMI Calculated 2013-10-04 15:58:00 [facility] al Sunil Height 2013-10-04 15:58:00 182.88 cm [facility] Weight 2013-10-04 15:58:00 [facility] Procedures Procedure Date / Time Performing Clinician Source Performed INTRAOPERATIVE PATH 2019-12-22 14:30:52 Provider, Default [facility] - REPORT - SCAN [facility] RHYTHM STRIP - SCAN 2019-12-22 10:52:03 Provider, Default [facility] St kes - [facility] TRANSFUSION SERVICE 2019-12-21 18:03:08 Provider, [facility] - REPORT - SCAN [facility] XR CHEST 1 VIEW 2019-12-21 13:52:00 Giovanna Figueredo [facility] ke s - PORTABLE/BEDSIDE [facility] MAGNESIUM 2019-12-21 13:14:00 Jeffy Carrera [facility] BASIC METABOLIC PANEL (7) 2019-12-21 04:43:00 KorbLuly [facility] MAGNESIUM 2019-12-21 04:43:00 Korb, Luly Mi [facility] CBC W/PLT COUNT & AUTO 2019-12-21 04:43:00 Korb, Luly Mi I [facility] XR CHEST 1 VIEW 2019-12-21 02:11:00 Korb, Luly Mi [facility] PORTABLE/BEDSIDE Medical Center XR CHEST 1 VIEW 2019-12-20 12:02:00 Korb, Luly Mi [facility] PORTABLE/BEDSIDE [facility] PREPARE RBC 2019-12-20 11:50:00 Debi [facility] BLOOD GAS, ARTERIAL 2019-12-20 08:25:07 Mike [facility] SODIUM NA-STAT LAB 2019-12-20 08:25:07 Mike [facility] POTASSIUM-STAT LAB 2019-12-20 08:25:07 Mike [facility] GLUCOSE-STAT LAB 2019-12-20 08:25:07 Mike [facility] HGB/HCT (H&H) - STAT LAB 2019-12-20 08:25:07 Mike [facility] THORACOSCOPY 2019-12-20 08:00:00 Jeffy Carrera [facility] - (VATS),LOBECTOMY W/ OR [facility] enter W/OUT LYMPADENECTOMY THORACOSCOPY 2019-12-20 08:00:00 Jeffy Carrera [facility] - (VATS),LYMPHADENECTOMY [facility] C enter BRONCHOSCOPY 2019-12-20 08:00:00 Debi [facility] ABORH, MANUAL 2019-12-20 06:11:00 So Luciano [facility] POCT-GLUCOSE METER 2019-12-20 05:52:[address] [facility] TRANSFUSION SERVICE 2019-12-16 18:04:13 Provider, Brenton [facility] - REPORT - SCAN [facility] XR CHEST 2 VIEWS 2019-12-15 16:26:00 Иван Noonan [facility] ECG 12-LEAD 2019-12-15 16:06:09 Unknown, Hl7 Doctor [facility] SARS-COV2/RT-PCR ([facility] & 2019-12-15 16:03:00 Woody Dias [facility] - REF LABS) Medical Center COMPREHENSIVE METABOLIC 2019-12-15 16:03:00 Shaista [facility] PANEL [facility] PT/APTT 2019-12-15 16:03:00 Shaista [facility] TYPE AND SCREEN, 2019-12-15 16:03:00 Иван Noonan [facility] AUTOMATED [facility] CBC W/PLT COUNT & AUTO 2019-12-15 16:03:00 Shaista [facility] DIFFERENTIAL [facility] [QL] CBC (INCLUDES 2019-11-28 00:00:00 [facility] DIFF/PLT) Physicians [QL] C-REACTIVE PROTEIN 2019-11-28 00:00:00 Univ ersity [facility] Physicians [QL] CREATININE W/EGFR 2019-11-28 00:00[facility]00 [facility] [QL] HEPATIC FUNCTION 2019-11-28 00:00:00 Univer sity [facility] PANEL Physicians [QL] UREA NITROGEN (BUN) 2019-11-28 00:00:00 [facility] [place] [facility] [QL] SED RATE BY MODIFIED 2019-11-28 00:00:00 Un [facility] [place] WESTERGREN Physicians [QL] HEPATITIS B CORE AB 2019-11-01 00:00:00 Uni versity [facility] [place] TOTAL Physicians [QL] HEPATITIS C ANTIBODY 2019-11-01 00:00:00 [facility] [QL] QUANTIFERON(R)-TB 2019-11-01 00:00:00 [facility] GOLD [facility] [L] HBsAg Screen 2019-11-01 00:00:00 [facility] Physicians [QL] CBC (INCLUDES 2019-10-19 00:00:00 [facility] DIFF/PLT) Physicians [QL] C-REACTIVE PROTEIN 2019-10-19 00:00:00 [facility] [QL] CREATININE W/EGFR 2019-10-19 00:00:00 Unive rsity [facility] Physicians [QL] HEPATIC FUNCTION 2019-10-19 00:00:00 Univer sity [facility] PANEL Physicians [QL] SED RATE BY MODIFIED 2019-10-19 00:00:00 [facility] Physicians [QL] UREA NITROGEN (BUN) 2019-10-19 00:00:00 [facility] [L] Hepatic Function 2019-08-01 00:00:00 Univers ity [facility] Panel (7) Physicians [QLH] CBC (INCLUDES 2019-08-01 00:00:00 [facility] [place] DIFF/PLT) Physicians [QLH] C-REACTIVE PROTEIN 2019-08-01 00:00:00 [facility] [QLH] CREATININE W/EGFR 2019-08-01 00:00:00 [facility] [QLH] SED RATE BY 2019-08-01 00:00:00 [facility] MODIFIED WESTERGREN Physicians [QLH] UREA NITROGEN (BUN) 2019-08-01 00:00:00 [facility] [QLH] UREA NITROGEN (BUN) 2019-06-20 00:00:00 [facility] [QLH] SED RATE BY 2019-06-20 00:00:00 [facility] MODIFIED WE[place] Physicians [QLH] HEPATIC FUNCTION 2019-06-20 00:00:00 [facility] PAN[facility] Physicians [QLH] CREATININE W/EGFR 2019-06-20 00:00:00 [facility] [QLH] C-REACTIVE PROTEIN 2019-06-20 00:00:00 [facility] [QLH] CBC (INCLUDES 2019-06-20 00:00:00 [facility] [place] DIFF/PLT) Physicians [QLH] HEPATIC FUNCTION 2019-05-16 00:00:00 [facility] PAN[facility] Physicians [QLH] CBC (INCLUDES 2019-05-16 00:00:00 [facility] [place] DIFF/PLT) Physicians [U] XR HAND 2 VWS 2019-05-16 00:00:00 [facility] BILATERAL Physicians [U] XR FOOT 2 VWS 2019-05-16 00:00:00 [facility] BILATERAL Physicians [QLH] CBC (INCLUDES 2019-05-04 00:00:00 [facility] DIFF/PLT) Physicians [QLH] HEPATIC FUNCTION 2019-05-04 00:00:00 [facility] PANEL Physicians [QLH] C-REACTIVE PROTEIN 2019-05-04 00:00:00 Uni [facility] Physicians [QLH] SED RATE BY 2019-05-04 00:00:00 [facility] MODIFIED [place] Physicians [QLH] SJOGRENS ANTIBODIES 2019-05-04 00:00:00 Un [facility] (SS-A,SS-B) Physicians [QH] CYCLIC CITRULLINATED 2019-05-04 00:00:00 Un [facility] PEPTIDE (CCP) AB (IGG) Physician s [QLH] HLA-B27, DNA TYPING 2019-05-04 00:00:00 Un [facility] Physicians [QLH] ANGIOTENSIN 2019-05-04 00:00:00 [facility] CONVERTING ENZYME (ALDAIR) Physicia ns [QL] CREATININE W/EGFR 2019-05-04 00:00:00 [facility] Physicians [QL] IMMUNOFIXATION, 2019-05-04 00:00:00 [facility] SERUM Physicians [Q] PROTEIN 2019-05-04 00:00:00 [facility] ELECTROPHORESIS PANEL 1 Physicia ns Cataract surgery [facility] [place] [facility] Plan of Care Planned Activity Planned Date Details Comments Source Diagnostic Test 2019-07-24 [QLH] [facility] Pending 00:00:00 (BUN) [code = [QL] Physicia ns UREA NITROGEN (BUN)] Diagnostic Test 2019-07-24 [QLH] SED RATE BY [facility] Pending 00:00:00 MODIFIED WESTERGR[place] Physicia ns [code = [QL] SED RATE BY MODIFIED WESTERGREN] Diagnostic Test 2019-07-24 [QLH] HEPATIC [facility] Pending 00:00:00 FUNCTION PANEL Physicians [code = [QL] HEPATIC FUNCTION PANEL] Diagnostic Test 2019-07-24 [QLH] CREATININE [facility] Pending 00:00:00 W/EGFR [code = Physicians [QL] CREATININE W/EGFR] Diagnostic Test 2019-07-24 [QLH] C-REACTIVE [facility] Pending 00:00:00 PROTEIN [code = Physicians [QLH] C-REACTIVE PROTEIN] Diagnostic Test 2019-07-24 [QLH] CBC (INCLUDES [facility] Pending 00:00:00 DIFF/PLT) [code = Physicians [QL] CBC (INCLUDES DIFF/PLT)] Diagnostic Test 2019-06-13 [QLH] HEPATIC [facility] Pending 00:00:00 FUNCTION PANEL Physicians [code = [QLH] HEPATIC FUNCTION PANEL] Diagnostic Test 2019-06-13 [QLH] CBC (INCLUDES [facility] Pending 00:00:00 DIFF/PLT) [code = Physicians [QLH] CBC (INCLUDES DIFF/PLT)] Future Appointment 2020-01-09 Pasha CHANG [facility] 14:15:00 Physicians Encounters Start End Encounter Admission Attending Care Care Encounter Source Date/Time Date/Time Type Type Clinicians Facility Department ID 2019-12-12 2019-12-12 Office PETR Carrera [id number] 12:44:00 14:55:53 Visit Jeffy Castaneda AMBULATOR [id number] Y [id number] 2019-11-28 2019-11-28 AppointMOJGAN [facility] [id number] Univers 13:00:00 13:00:00 t; BERNARDO DELANEY, at [facility] agueda CHANG M.D. [facility] Jose Elias [facility] [place] 2019-11-01 2019-11-01 AppointMOJGAN [facility] [phone] Univers 09:45:00 09:45:00 t; BERNARDO DELANEY, - Sugar ity Pasha Tate [address] [place] [address] Pasha Physici ans 2019-10-19 2019-10-19 AppointMOJGAN [facility] [phone] Univers 11:15:00 11:15:00 t; BERNARDO DELANEY, - [place] Pasha Tate [address] [place] [address] Pasha Physici ans 2019-10-02 2019-10-02 AppointMOJGAN [facility] [phone] Univers 14:15:00 14:15:00 t; BERNARDO DELANEY, - [place] agueda CHANG M.D. [address] 2019-08-01 2019-08-01 AppointMOJGAN [facility] [phone] Univers 13:00:00 13:00:00 t; BERNARDO DELANEY, - [place] agueda CHANG M.D. [address] 2019-06-20 2019-06-20 AppointMOJGAN [facility] [phone] Univers 13:00:00 13:00:00 t; BERNARDO DELANEY, at [facility] Pasha CHANG [facility] 2019-05-16 2019-05-16 AppointMOJGAN [facility] [phone] Univers 13:00:00 13:00:00 t; BERNARDO DELANEY, at [facility] Pasha CHANG [facility] 2019-05-04 2019-05-04 AppointMOJGAN [facility] [phone] Univers 13:45:00 13:45:00 t; BERNARDO DELANEY, lty - Alexis M.D. [facility] 2013-10-05 2013-10-05 Outpatient [place] Gars[place] [id number] [facility] 08:16:00 12:00:00 [facility] 00 Results Test Description Test Test Comments Results Result Sour e Time Comments RAD, CHEST, 1 2019-12- Reason for FINAL REPORT PATIENT VIEW, NON DEPT 18 exam:->s/p ChT ID: [id number] Chest 14:21:00 removalShould one view. Clinical this be performed history: s/p ChT at the removal Comparison: bedside?->Yes 12/21/2019 Discussion: A frontal chest is provided. Cardiomediastinal contours are unchanged. A right chest tube has been removed. There is volume loss in the right lung. No pneumothorax. No new consolidation. No large effusion. Signed: Madhav Daly Verified Date/Time: 12/21/2019 14:21:04 Reading Location: [facility] Radiology Reading Room chest 1 view 2019-12- Interface, External [facility] Ris In - 12/21/2019 [facility] - bedside 14:21:00 2:23 PM CDTFINAL Medical REPORT PATIENT ID: Center [id number] Chest one view. Clinical history: s/p ChT removal Comparison: 12/21/2019 Discussion: A frontal chest is provided. Cardiomediastinal contours are unchanged. A right chest tube has been removed. There is volume loss in the right lung. No pneumothorax. No new consolidation. No large effusion. Signed: Madhav Daly Verified Date/Time: 12/21/2019 14:21:04 Reading Location: [facility] Radiology Reading Room Magnesium 2019-12-21 13:53:00 Test Item Value Reference Range Interpretation Comme nts Magnesium (test code = 75890-9) 2.6 mg/dL 1.6-2.6 ZOYA (test code = ZOYA) Mobile Sales Consultant ID - IRINAANDRESSA L Lab Interpretation (test code = 58100-8) Normal [facility] [id number] 13:53:00 Test Item Value Reference Range Interpretation Comments MAGNESIUM (BEAKER) (test code = 2.6 mg/dL 1.6-2.6 627) Mobile Sales Consultant ID - CED LCBC with platelet count + automated [id number] 05:37:00 Test Item Value Reference Range Interpretation Comments WBC (test code = 6690-2) 5.7 3.5- 10.5 K/L RBC (test code = 789-8) 3.14 4.63- 6.08 M/L L MCHC (test code = 786-4) 32.4 32.3- 36.5 GM/DL L Hematocrit (test code = 4544-3) 28.4 % 40.1-51 L MCV (test code = 787-2) 90.4 fL 79-92.2 MCH (test code = 785-6) 29.3 pg 25.7-32.2 RDW (test code = 788-0) 16.8 % 11.6-14.4 H Platelets (test code = 777-3) 159 150- 450 K/CU MM MPV (test code = 12540-6) 9.8 fL 9.4-12.4 nRBC (test code = 413) 0 0- 0 /100 WBC % Neutros (test code = 429) 84 % % Lymphs (test code = 430) 10 % % Monos (test code = 431) 5 % % Eos (test code = 432) 0 % % Baso (test code = 437) 0 % # Neutros (test code = 670) 4.80 1.78- 5.38 K/L # Lymphs (test code = 414) 0.57 1.32- 3.57 K/L L # Monos (test code = 415) 0.31 0.30- 0.82 K/L # Eos (test code = 416) 0.00 0.04- 0.54 K/L L # Baso (test code = 417) 0.01 0.01- 0.08 K/L Immature Granulocytes-Relative 1 % 0-1 (test code = 2801) Lab Interpretation (test code = Abnormal 66984-0) [facility] W/PLT COUNT & AUTO [id number] 05:37:00 Test Item Value Reference Range Interpretation Comments WHITE BLOOD CELL COUNT (BEAKER) 5.7 K/ L 3.5-10.5 (test code = 775) RED BLOOD CELL COUNT (BEAKER) 3.14 M/ L 4.63-6.08 L (test code = 761) HEMOGLOBIN (BEAKER) (test code = 9.2 GM/DL 13.7-17.5 L 410) HEMATOCRIT (BEAKER) (test code = 28.4 % 40.1-51.0 L 411) MEAN CORPUSCULAR VOLUME (BEAKER) 90.4 fL 79.0-92.2 (test code = 753) MEAN CORPUSCULAR HEMOGLOBIN 29.3 pg 25.7-32.2 (BEAKER) (test code = 751) MEAN CORPUSCULAR HEMOGLOBIN CONC 32.4 GM/DL 32.3-36.5 (BEAKER) (test code = 752) RED CELL DISTRIBUTION WIDTH 16.8 % 11.6-14.4 H (BEAKER) (test code = 412) PLATELET COUNT (BEAKER) (test 159 K/CU MM 150-450 code = 756) MEAN PLATELET VOLUME (BEAKER) 9.8 fL 9.4-12.4 (test code = 754) NUCLEATED RED BLOOD CELLS 0 /100 WBC 0-0 (BEAKER) (test code = 413) NEUTROPHILS RELATIVE PERCENT 84 % (BEAKER) (test code = 429) LYMPHOCYTES RELATIVE PERCENT 10 % (BEAKER) (test code = 430) MONOCYTES RELATIVE PERCENT 5 % (BEAKER) (test code = 431) EOSINOPHILS RELATIVE PERCENT 0 % (BEAKER) (test code = 432) BASOPHILS RELATIVE PERCENT 0 % (BEAKER) (test code = 437) NEUTROPHILS ABSOLUTE COUNT 4.80 K/ L 1.78-5.38 (BEAKER) (test code = 670) LYMPHOCYTES ABSOLUTE COUNT 0.57 K/ L 1.32-3.57 L (BEAKER) (test code = 414) MONOCYTES ABSOLUTE COUNT (BEAKER) 0.31 K/ L 0.30-0.82 (test code = 415) EOSINOPHILS ABSOLUTE COUNT 0.00 K/ L 0.04-0.54 L (BEAKER) (test code = 416) BASOPHILS ABSOLUTE COUNT (BEAKER) 0.01 K/ L 0.01-0.08 (test code = 417) IMMATURE GRANULOCYTES-RELATIVE 1 % 0-1 PERCENT (BEAKER) (test code = 2801) Basic Metabolic [id number] 05:27:00 Test Item Value Reference Range Interpretation Comments Sodium (test code = 136 meq/L 648-075 8150-2) Potassium (test code = 4.2 meq/L 3.5-5.1 2823-3) Chloride (test code = 103 meq/L 98-107 2075-0) CO2 (test code = 27 meq/L 22-29 8-9) BUN (test code = 12 mg/dL 7-21 3094-0) Creatinine (test code 0.89 mg/dL 0.57-1.25 = 2160-0) Glucose (test code = 201 mg/dL 70-105 H 2345-7) Calcium (test code = 8.6 mg/dL 8.4-10.2 87542-8) EGFR (test code = 85 mL/min/1.73 [place] [address]-2) NOT ACCURATE CREATININE CLEARANCE IN PREDICTING GLOMERULAR FILTRATION RATE . ESTIMATED GFR I S NOT APPLICABLE FOR DIALYSIS PATIENTS. ZOYA (test code = ZOYA) Mobile Sales Consultant ID Reny COUGHLIN L Lab Interpretation Abnormal (test code = 21308-4) [id number] 05:27:00 Test Item Value Reference Range Interpretation Comments MAGNESIUM (BEAKER) (test code = 1.6 mg/dL 1.6-2.6 627) Mobile Sales Consultant ID Reny COUGHLIN LBASIC METABOLIC [id number] 05:27:00 Test Item Value Reference Range Interpretation Comments SODIUM (BEAKER) 136 meq/L 136-145 (test code = 381) POTASSIUM (BEAKER) 4.2 meq/L 3.5-5.1 (test code = 379) CHLORIDE (BEAKER) 103 meq/L 98-107 (test code = 382) CO2 (BEAKER) (test 27 meq/L 22-29 code = 355) BLOOD UREA NITROGEN 12 mg/dL 7-21 (BEAKER) (test code = 354) CREATININE (BEAKER) 0.89 mg/dL 0.57-1.25 (test code = 358) GLUCOSE RANDOM 201 mg/dL 70-105 H (BEAKER) (test code = 652) CALCIUM (BEAKER) 8.6 mg/dL 8.4-10.2 (test code = 697) EGFR (BEAKER) (test 85 mL/min/1.73 ESTIMA DELL GFR IS code = 1092) sq m NOT ACCURATE CREATININE CLEARANCE IN PREDICTING GLOMERULAR FILTRATION RATE . ESTIMATED GFR I S NOT APPLICABLE FOR DIALYSIS PATIEN TS. Mobile Sales Consultant ID - CED LRAD, CHEST, 1 VIEW, NON [id number] 03:15:00Reason for exam:->s/p RUL resectionShould this be performed at the bedside?->YesFINAL REPORT RAD, CHEST, 1 VIEW, NON DEPT INDICATION: s/p RUL resection COMPARISON: 14 hours prior FINDINGS: Portable frontal view of the chest. IMPRESSION: Support Lines: No significant change. Lungs and pleura: Increased right upper lobe opacity adjacent to the chest tube. Minimal discoid atelectasis at the left lung base noted. No pneumothorax.Heart and mediastinum: Stable contours. Additional findings: None. Signed: Felipe Fernandezort Verified Date/Time: 12/21/2019 03:15:54 RAD, CHEST, 1 VIEW, NON [id number] 13:20:00Reason for exam:->s/p RUL resectionShould this be performed at the bedside?->YesFINAL REPORT CLINICAL HISTORY: s/p RUL resection TECHNIQUE: 1 view of the chest. COMPARISON: 12/15/2019 IMPRESSION: There is a new right apical chest tube. There are new chain sutures in the right upper lung with adjacent pleural parenchymal opacities. There is no pneumothorax. There is subcutaneous emphysema in the right chest wall. There are no significant appearing effusions. There is new left lower lung atelectasis. The cardiomediastinal silhouette is magnified by technique. Signed: Stefan Hernandez Verified Date/Time: 12/20/2019 13:20:10 Reading Location: [facility] Radiology Reading Room Prepare [id number] 11:50:00 Test Item Value Reference Range Interpretation Comments CROSSMATCH (test code = COMPATIBLE 2264) Unit ABO (test code = O Pos 9317905) UNIT NUMBER (test code = [id number] 934-0) Status (test code = RETURNED FROM ISSUE 9691722) Blood Bank Product (test RED BLOOD CELLS code = 2263) PRODUCT CODE (test code = V0927W08 933-2) [facility] Center[facility], [id number] 08:34:00 Test Item Value Reference Range Interpretation Comments pH, Arterial (test code = 2744-1) 7.42 7.35-7.45 pCO2, Arterial (test code = 40 35- 45 mmHg 2019-02) pO2, Arterial (test code = 2703-7) 259 80- 90 mmHg H O2 Sat, Arterial (test code = 99.6 % 96-97 H 2708-6) HCO3, Arterial (test code = 26 mmol/L 21-29 1960-4) Base Excess, Arterial (test code = 0.9 mmol/L -2-3 1925-7) Patient Temperature (test code = 35.8 C 8310-5) FIO2 (test code = 1819) 100 % Lab Interpretation (test code = Abnormal 47403-4) [facility] CenterHGB/HCT (H&H)-Stat [id number] 08:34:00 Test Item Value Reference Range Interpretation Comments Hemoglobin (test code = 786-4) 10.1 g/dL 13-16.8 L Hematocrit (test code = 4544-3) 30.0 % 40-50 L Lab Interpretation (test code = Abnormal 23263-2) [facility] CenterBLO[facility] GAS, [id number] 08:34:00 Test Item Value Reference Range Interpretation Comments PH ARTERIAL (BEAKER) (test code = 7.42 7.35-7.45 383) PCO2 ARTERIAL (BEAKER) (test code 40 mmHg 35-45 = 384) PO2 ARTERIAL (BEAKER) (test code = 259 mmHg 80-90 H 385) O2 SATURATION ARTERIAL (BEAKER) 99.6 % 96.0-97.0 H (test code = 386) HCO3 ARTERIAL (BEAKER) (test code 26 mmol/L 21-29 = 388) BASE EXCESS ARTERIAL (BEAKER) 0.9 mmol/L -2.0-3.0 (test code = 387) PATIENT TEMPERATURE (BEAKER) (test 35.8 C code = 1818) FIO2 (BEAKER) (test code = 1819) 100.0 % HGB/HCT (H&H) - STAT [id number] 08:34:00 Test Item Value Reference Range Interpretation Comments HEMOGLOBIN (BEAKER) (test code = 10.1 g/dL 13.0-16.8 L 410) HEMATOCRIT (BEAKER) (test code = 30.0 % 40.0-50.0 L 411) Glucose-Stat [id number] 08:33:00 Test Item Value Reference Range Interpretation Comments Glucose (test code = 2345-7) 106 mg/dL 70-110 Lab Interpretation (test code = Normal 82908-1) [facility] [id number] 08:33:00 Test Item Value Reference Range Interpretation Comments Sodium (test code = 2951-2) 138 meq/L 136-145 Lab Interpretation (test code = Normal 16985-7) [facility] CenterPotassium-Stat [id number] 08:33:00 Test Item Value Reference Range Interpretation Comments Potassium (test code = 2823-3) 3.5 meq/L 3.6-5.5 L Lab Interpretation (test code = Abnormal 67918-3) [facility] CenterGLUCOSE-STAT [id number] 08:33:00 Test Item Value Reference Range Interpretation Comments GLUCOSE RANDOM (BEAKER) (test code 106 mg/dL 70-110 = 652) SODIUM NA-STAT [id number] 08:33:00 Test Item Value Reference Range Interpretation Comments SODIUM (BEAKER) (test code = 381) 138 meq/L 136-145 POTASSIUM-STAT [id number] 08:33:00 Test Item Value Reference Range Interpretation Comments POTASSIUM (BEAKER) (test code = 3.5 meq/L 3.6-5.5 L 379) ABORH, [id number] 07:26:00 Test Item Value Reference Range Interpretation Comments ABO Grouping (test code = 2588) O Rh Factor (test code = 2589) POS [facility] CenterPOC-Glucose [id number] 06:04:00 Test Item Value Reference Range Interpretation Comments POC-Glucose Meter (test 128 mg/dL 70-110 H : TE STED AT [facility] code = 1538) [address] [facility], 770 30: Mobile Sales Consultant/Techni lionel ID = [id number] for TORSTEN, LACRYST [place] Lab Interpretation (test Abnormal code = 07627-5) [facility] CenterPOCT-GLUCOSE [id number] 06:04:00 Test Item Value Reference Range Interpretation Comments POC-GLUCOSE METER 128 mg/dL 70-110 H : TESTED A T [facility] 6720 (BEAKER) (test code [facility], = 1538) [address]: Mobile Sales Consultant/Techni lionel ID = [id number] for JORD AN, LACRYSTAL SARS-CoV2/RT-PCR ([facility] & Ref Labs)2019-12-17 10:22:00 Test Item Value Reference Range Interpretation Comments SARS-COV2/RT-PCR (test code = Negative Not Detected, Negative 75535-1) SARS-COV-2 PERFORMING LAB CPL (test code = 66479-1) [facility] ([facility] REF LAB[facility])2019-12-17 10:22:00 Test Item Value Reference Range Interpretation Comments SARS-COV2/RT-PCR (test code = Negative Not Detected, Negative 7035232) SARS-COV-2 PERFORMING LAB CPL (test code = 1256118) ECG 12 [id number] 07:38:35Interface, External Ris In - 12/17/2019 7:38 AM CDTVentricular Rate 56 BPMAtrial Rate 56 BPMP-R Interval 170 msQRS Duration 120 msQ-T Interval 434 msQTC Calculation(Bazett) 418 msP [place] 59 degreesR [place] 16 degreesT [place] 58 degreesSinus bradycardiaLeft atrial enlargementRight bundle branch blockBorderline ECGNo previous ECGs availableConfirmed by MD Munroe Roberto ([id number]) on 12/17/2019 7:38:31AMLong [facility] Memorial Medical CenterType and screen, [id number] 17:18:00 Test Item Value Reference Range Interpretation Comments ABO/RH AUTOMATED (BEAKER) (test O POSITIVE code = 2260) Ab Scrn (test code = 890-4) NEGATIVE [facility] CenterComprehensive metabolic [id number] 16:48:00 Test Item Value Reference Range Interpretation Comments Protein, Total 7.7 6.0- 8.3 gm/dL (test code = 2885-2) Albumin (test code 4.1 g/dL 3.5-5 = 28926-9) Alkaline 99 U/L 40-150 Phosphatase (test code = 6768-6) Total Bilirubin 0.7 mg/dL 0.2-1.2 (test code = 1975-2) Sodium (test code = 140 meq/L 014-162 1474-2) Potassium (test 3.5 meq/L 3.5-5.1 code = 2823-3) Chloride (test code 103 meq/L 98-107 = 2075-0) CO2 (test code = 28 meq/L 22-29 2027-) BUN (test code = 16 mg/dL 7-21 3094-0) Creatinine (test 1.05 mg/dL 0.57-1.25 code = 2160-0) Glucose (test code 91 mg/dL 70-105 = 2345-7) Calcium (test code 9.2 mg/dL 8.4-10.2 = 26232-4) AST (test code = 19 U/L 5-34 1920-8) ALT (test code = 23 U/L 6-55 1742-6) EGFR (test code = 70 mL/min/1.[place] [address]-6) NOT ACCURATE CREATININE CLEARANCE IN PREDICTING GLOMERULAR FILTRATION RATE . ESTIMATED GFR I S NOT APPLICABLE FOR DIALYSIS PATIEN ZOYA (test code = Mobile Sales Consultant ID - BS ZOYA) [facility] CenterCOMPREHENSIVE METABOLIC [id number] 16:48:00 Test Item Value Reference Range Interpretation Comments TOTAL PROTEIN 7.7 gm/dL 6.0-8.3 (BEAKER) (test code = 770) ALBUMIN (BEAKER) 4.1 g/dL 3.5-5.0 (test code = 1145) ALKALINE PHOSPHATASE 99 U/L 40-150 (BEAKER) (test code = 346) BILIRUBIN TOTAL 0.7 mg/dL 0.2-1.2 (BEAKER) (test code = 377) SODIUM (BEAKER) (test 140 meq/L 136-145 code = 381) POTASSIUM (BEAKER) 3.5 meq/L 3.5-5.1 (test code = 379) CHLORIDE (BEAKER) 103 meq/L 98-107 (test code = 382) CO2 (BEAKER) (test 28 meq/L 22-29 code = 355) BLOOD UREA NITROGEN 16 mg/dL 7-21 (BEAKER) (test code = 354) CREATININE (BEAKER) 1.05 mg/dL 0.57-1.25 (test code = 358) GLUCOSE RANDOM 91 mg/dL 70-105 (BEAKER) (test code = 652) CALCIUM (BEAKER) 9.2 mg/dL 8.4-10.2 (test code = 697) AST (SGOT) (BEAKER) 19 U/L 5-34 (test code = 353) ALT (SGPT) (BEAKER) 23 U/L 6-55 (test code = 347) EGFR (BEAKER) (test 70 mL/min/1.73 ESTIMA DELL GFR IS code = 1092) sq m NOT ACCURATE CREATININE CLEARANCE IN PREDICTING GLOMERULAR FILTRATION RATE . ESTIMATED GFR I S NOT APPLICABLE FOR DIALYSIS PATIEN TS. Mobile Sales Consultant ID - BSPT/[id number] 16:45:00 Test Item Value Reference Range Interpretation Comments Protime (test code = 13.3 11.9- 14.2 5902-2) seconds INR (test code = 1.0 <=5.9 6301-6) PTT (test code = 33.0 22.5- 36.0 23075-7) seconds ZOYA (test code = ZOYA) Effective 11/30/2018: PT Reference Range ChangeNew: 11.9-14.2 Previous: 11.7-14.7 RECOMMENDED COUMADIN/WARFARIN INR THERAPY RANGESSTANDARD DOSE: 2.0-3.0 Includes: PROPHYLAXIS for venous thrombosis, systemic embolization; TREATMENT for venous thrombosis and/or pulmonary embolus.HIGH RISK: Target INR is 2.5-3.5 for patients wiht mechanical heart valves. Lab Interpretation Normal (test code = 12538-0) [facility] CenterPT/[id number] 16:45:00 Test Item Value Reference Range Interpretation Comments PROTIME (BEAKER) (test code = 13.3 seconds 11.9-14.2 759) INR (BEAKER) (test code = 370) 1.0 <=5.9 PARTIAL THROMBOPLASTIN TIME 33.0 seconds 22.5-36.0 (BEAKER) (test code = 760) Effective 11/30/2018: PT Reference Range ChangeNew: 11.9-14.2 Previous: 11.7- 14.7RECOMMENDED COUMADIN/WARFARIN INR THERAPY RANGESSTANDARD DOSE: 2.0-3.0 Includes: PROPHYLAXIS for venous thrombosis, systemic embolization; TREATMENT for venous thrombosis and/or pulmonary embolus.HIGH RISK: Target INR is2.5-3.5 for patients wiht mechanical heart valves.RAD, CHEST, 2 [id number] 16:37:00 Reason for exam:->surgery 12/20/2019FINAL REPORT TECHNIQUE: Frontal and lateral chest radiographs dated 12/15/2019. CLINICAL HISTORY: PreSurgery 12/20/2019 COMPARISON STUDY: None FINDINGS: Lungs are clear. No pleural effusion or pneumothorax. Cardiomediastinal silhouette is normal in size. No pulmonary edema. Bones are osteopenic. Degenerative changes are seen in the spine. IMPRESSION: No focal consolidation. Signed: Reinaldo Lizeport Verified Date/Time: 12/15/2019 16:37:07 Reading Location: [address] Radiology Reading Room XR chest 2 [id number] 16:37:00Interface, External Ris In - 12/15/2019 4:39 PM CDTFINAL REPORT TECHNIQUE: Frontal and lateral chest radiographs dated 12/15/2019. CLINICAL HISTORY: PreSurgery 12/20/2019 COMPARISON STUDY: None FINDINGS: Lungs are clear. No pleural effusion or pneumothorax. Cardiomediastinal silhouette is normal in size. No pulmonary edema. Bones are osteopenic. Degenerative changes are seen in the spine. IMPRESSION: No focal consolidation. Signed: Reinaldo Lizeport Verified Date/Time: 12/15/2019 16:37:07 Reading Location: [address] Radiology Reading Room [facility] W/PLT COUNT & AUTO [id number] 16:25:00 Test Item Value Reference Range Interpretation Comments WHITE BLOOD CELL COUNT (BEAKER) 3.8 K/ L 3.5-10.5 (test code = 775) RED BLOOD CELL COUNT (BEAKER) 3.82 M/ L 4.63-6.08 L (test code = 761) HEMOGLOBIN (BEAKER) (test code = 11.2 GM/DL 13.7-17.5 L 410) HEMATOCRIT (BEAKER) (test code = 34.5 % 40.1-51.0 L 411) MEAN CORPUSCULAR VOLUME (BEAKER) 90.3 fL 79.0-92.2 (test code = 753) MEAN CORPUSCULAR HEMOGLOBIN 29.3 pg 25.7-32.2 (BEAKER) (test code = 751) MEAN CORPUSCULAR HEMOGLOBIN CONC 32.5 GM/DL 32.3-36.5 (BEAKER) (test code = 752) RED CELL DISTRIBUTION WIDTH 15.9 % 11.6-14.4 H (BEAKER) (test code = 412) PLATELET COUNT (BEAKER) (test 211 K/CU MM 150-450 code = 756) MEAN PLATELET VOLUME (BEAKER) 9.6 fL 9.4-12.4 (test code = 754) NUCLEATED RED BLOOD CELLS 0 /100 WBC 0-0 (BEAKER) (test code = 413) NEUTROPHILS RELATIVE PERCENT 50 % (BEAKER) (test code = 429) LYMPHOCYTES RELATIVE PERCENT 43 % (BEAKER) (test code = 430) MONOCYTES RELATIVE PERCENT 5 % (BEAKER) (test code = 431) EOSINOPHILS RELATIVE PERCENT 1 % (BEAKER) (test code = 432) BASOPHILS RELATIVE PERCENT 1 % (BEAKER) (test code = 437) NEUTROPHILS ABSOLUTE COUNT 1.89 K/ L 1.78-5.38 (BEAKER) (test code = 670) LYMPHOCYTES ABSOLUTE COUNT 1.61 K/ L 1.32-3.57 (BEAKER) (test code = 414) MONOCYTES ABSOLUTE COUNT (BEAKER) 0.18 K/ L 0.30-0.82 L (test code = 415) EOSINOPHILS ABSOLUTE COUNT 0.05 K/ L 0.04-0.54 (BEAKER) (test code = 416) BASOPHILS ABSOLUTE COUNT (BEAKER) 0.03 K/ L 0.01-0.08 (test code = 417) IMMATURE GRANULOCYTES-RELATIVE 0 % 0-1 PERCENT (BEAKER) (test code = 2801) [QL] HEPATITIS C [id number] 13:30:00 Test Item Value Reference Range Interpretation Comments Hep C Virus Ab (test <0.1 0.0-0.9 Negativ e: < 0.8 code = 07961-4) Indetermin ate: 0.8 - 0.9 Positive: > 0.9 . The CDC recommends that a positive HCV antibody re sult be follow ed up with a HCV Nucleic Aci d Amplification test (630246). [facility][L] HBsAg [id number] 13:30:00 Test Item Value Reference Range Interpretation Comments HBsAg Screen (test code = 5196-1) Negative Negative [facility][QL] HEPATITIS B CORE AB [id number] 13:30:00 Test Item Value Reference Range Interpretation Comments Hep B Core Ab, Tot; Positive Negative A Verifi ed by repeat Abnormal (test code = [place] [address]-1) [facility][L] QuantiFERON-TB Gold [id number] 13:30:00 Test Item Value Reference Range Interpretation Comments QuantiFERON Incubation Incubation (test performed. code = QuantiFERON Incubation) QuantiFERON See Comment The QuantiFERON -TB Criteria (test Gold Plus res ult is code = QuantiFERON determine d by Criteria) subtractingthe Nil value from eith er TB antigen (Ag) tu be. The mitogen tubeserves as a control for the test. QuantiFERON TB1 Ag 0.03 {IU/mL} Value (test code = QuantiFERON TB1 Ag Value) QuantiFERON TB2 Ag 0.02 {IU/mL} Value (test code = QuantiFERON TB2 Ag Value) QuantiFERON Nil 0.02 {IU/mL} Value (test code = QuantiFERON Nil Value) QuantiFERON 1.28 {IU/mL} Mitogen Value (test code = QuantiFERON Mitogen Value) QuantiFERON-TB Negative Negative Gold Plus (test code = QuantiFERON-TB Gold Plus) [facility][QL] CBC (INCLUDES DIFF/PLT)2019-11-01 13:26:00 Test Item Value Reference Range Interpretation Comments WBC (test code = 6690-2) 6.0 {x10E3/uL} 3.4-10.8 RBC; Below Low Threshold 3.55 {x10E6/uL} 4.14-5.80 (test code = 789-8) Hemoglobin; Below Low 10.0 g/dL 13.0-17.7 Threshold (test code = 718-7) Hematocrit; Below Low 31.5 % 37.5-51.0 Threshold (test code = 4544-3) MCV (test code = 787-2) 89 fL 79-97 MCH (test code = 785-6) 28.2 pg 26.6-33.0 MCHC (test code = 786-4) 31.7 g/dL 31.5-35.7 RDW (test code = 788-0) 15.0 % 11.6-15.4 Platelets (test code = 777-3) 226 {x10E3/uL} 150-450 Neutrophils (test code = 86 % Not Estab. 770-8) Lymphs (test code = 736-9) 10 % Not Estab. Monocytes (test code = 3 % Not Estab. 5905-5) Eos (test code = 713-8) 0 % Not Estab. Basos (test code = 706-2) 1 % Not Estab. Immature Cells (test code = See Comment Immature Cells) Neutrophils (Absolute) (test 5.1 {x10E3/uL} 1.4-7.0 code = 751-8) Lymphs (Absolute); Below Low 0.6 {x10E3/uL} 0.7-3.1 Threshold (test code = 731-0) Monocytes(Absolute) (test 0.2 {x10E3/uL} 0.1-0.9 code = 742-7) Eos (Absolute) (test code = 0.0 {x10E3/uL} 0.0-0.4 711-2) Baso (Absolute) (test code = 0.0 {x10E3/uL} 0.0-0.2 704-7) Immature Granulocytes (test 0 % Not Estab. code = 41405-3) Immature Grans (Abs) (test 0.0 {x10E3/uL} 0.0-0.1 code = 96360-6) NRBC (test code = 85661-3) See Comment Hematology Comments: (test See Comment code = 87108-9) [facility][L] Hepatic Function Panel (7)2019-11-01 13:26:00 Test Item Value Reference Range Interpretation Comments Protein, Total (test code = 6.6 g/dL 6.0-8.5 2885-2) Albumin; Below Low Threshold (test 3.5 g/dL 3.8-4.8 code = 1751-7) Bilirubin, Total (test code = 0.3 mg/dL 0.0-1.2 1974-2) Bilirubin, Direct (test code = 0.11 mg/dL 0.00-0.40 1967-7) Alkaline Phosphatase (test code = 91 {IU/L} 39-117 6768-6) AST (SGOT) (test code = 1920-8) 13 {IU/L} 0-40 ALT (SGPT) (test code = 1742-6) 25 {IU/L} 0-44 [facility][] UREA NITROGEN (BUN)2019-11-01 13:26:00 Test Item Value Reference Range Interpretation Comments BUN (test code = 3094-0) 19 mg/dL 8-27 [facility][] CREATININE [id number] 13:26:00 Test Item Value Reference Range Interpretation Comments Creatinine (test code = 0.88 mg/dL 0.76-1.27 0-0) eGFR If NonAfricn Am (test 88 mL/min/1.7 >59 code = 09793-8) eGFR If Africn Am (test code = 101 mL/min/1.7 >59 92413-9) [facility][] SED RATE BY MODIFIED [id number] 13:26:00 Test Item Value Reference Range Interpretation Comments Sedimentation Rate-Westergren; 59 {mm/hr} 0-30 Above High Threshold (test code = 4537-7) [facility][] CARDIO CRP(R)2019-11-01 13:26:00 Test Item Value Reference Range Interpretation Comments C-Reactive Protein, 69.90 mg/L 0.00-3.00 Results confirmed Cardiac; Above High ondiluti on. Threshold (test Re lative Risk code = 87190-1) for Future Cardiovascular Event L ow <1.00 Average 1.00 - 3.00 High >3.00 [facility]] CBC (INCLUDES DIFF/PLT)2019-07-26 08:56:00 Test Item Value Reference Range Interpretation Comments WBC (test code = 6690-2) 4.8 {x10E3/uL} 3.4-10.8 RBC (test code = 789-8) 4.19 {x10E6/uL} 4.14-5.80 Hemoglobin; Below Low 11.7 g/dL 13.0-17.7 Threshold (test code = 718-7) Hematocrit; Below Low 35.8 % 37.5-51.0 Threshold (test code = 4544-3) MCV (test code = 787-2) 85 fL 79-97 MCH (test code = 785-6) 27.9 pg 26.6-33.0 MCHC (test code = 786-4) 32.7 g/dL 31.5-35.7 RDW; Above High Threshold 17.3 % 11.6-15.4 (test code = 788-0) Platelets (test code = 777-3) 206 {x10E3/uL} 150-450 Neutrophils (test code = 57 % Not Estab. 770-8) Lymphs (test code = 736-9) 34 % Not Estab. Monocytes (test code = 6 % Not Estab. 5905-5) Eos (test code = 713-8) 3 % Not Estab. Basos (test code = 706-2) 0 % Not Estab. Immature Cells (test code = See Comment Immature Cells) Neutrophils (Absolute) (test 2.7 {x10E3/uL} 1.4-7.0 code = 751-8) Lymphs (Absolute) (test code 1.6 {x10E3/uL} 0.7-3.1 = 731-0) Monocytes(Absolute) (test 0.3 {x10E3/uL} 0.1-0.9 code = 742-7) Eos (Absolute) (test code = 0.1 {x10E3/uL} 0.0-0.4 711-2) Baso (Absolute) (test code = 0.0 {x10E3/uL} 0.0-0.2 704-7) Immature Granulocytes (test 0 % Not Estab. code = 48898-1) Immature Grans (Abs) (test 0.0 {x10E3/uL} 0.0-0.1 code = 71139-2) NRBC (test code = 25861-4) See Comment Hematology Comments: (test See Comment code = 68819-2) [facility][L] Hepatic Function Panel (7)2019-07-26 08:56:00 Test Item Value Reference Range Interpretation Comments Protein, Total (test 7.1 g/dL 6.0-8.5 code = 2885-2) Albumin (test code = 3.8 g/dL 3.8-4.8 Josefa e note 1751-7) reference inter yanelis change Bilirubin, Total (test 0.4 mg/dL 0.0-1.2 code = 1974-2) Bilirubin, Direct 0.15 mg/dL 0.00-0.40 (test code = 1967-7) Alkaline Phosphatase; 149 {IU/L} 39-117 Above High Threshold (test code = 6768-6) AST (SGOT) (test code 17 {IU/L} 0-40 = 1920-8) ALT (SGPT) (test code 19 {IU/L} 0-44 = 1742-6) [facility]] UREA NITROGEN (BUN)2019-07-26 08:56:00 Test Item Value Reference Range Interpretation Comments BUN (test code = 3094-0) 13 mg/dL 02-28 [facility]] CREATININE [id number] 08:56:00 Test Item Value Reference Range Interpretation Comments Creatinine (test code = 0.83 mg/dL 0.76-1.27 2160-0) eGFR If NonAfricn Am (test 90 mL/min/1.7 >59 code = 24713-5) eGFR If Africn Am (test code = 105 mL/min/1.7 >59 61580-2) [facility]] SED RATE BY MODIFIED [id number] 08:56:00 Test Item Value Reference Range Interpretation Comments Sedimentation Rate-Westergren 14 {mm/hr} 0-30 (test code = 4537-7) [facility]] C-REACTIVE [id number] 08:56:00 Test Item Value Reference Range Interpretation Comments C-Reactive Protein, Quant (test code = <1 0-10 1987-) [facility]] CBC (INCLUDES DIFF/PLT)2019-06-13 07:47:00 Test Item Value Reference Range Interpretation Comments WBC (test code = 4.0 {x10E3/uL} 3.4-10.8 6690-2) RBC (test code = 5.16 {x10E6/uL} 4.14-5.80 789-8) Hemoglobin (test code 14.2 g/dL 13.0-17.7 = 718-7) Hematocrit (test code 41.7 % 37.5-51.0 = 4544-3) MCV (test code = 81 fL 79-97 787-2) MCH (test code = 27.5 pg 26.6-33.0 785-6) MCHC (test code = 34.1 g/dL 31.5-35.7 786-4) RDW; Above High 16.0 % 12.3-15.4 Effective Threshold (test code July 10, 2019, = 788-0) the RDW pediatr ic reference interval will b e removed and the adult reference interval will be changing to: Female 11. 7 - 15.4 Male 11.6 - 15.4 Platelets (test code 259 {x10E3/uL} 150-450 = 777-3) Neutrophils (test 54 % Not Estab. code = 770-8) Lymphs (test code = 38 % Not Estab. 736-9) Monocytes (test code 5 % Not Estab. = 5905-5) Eos (test code = 2 % Not Estab. 713-8) Basos (test code = 1 % Not Estab. 706-2) Immature Cells (test See Comment code = Immature Cells) Neutrophils 2.2 {x10E3/uL} 1.4-7.0 (Absolute) (test code = 751-8) Lymphs (Absolute) 1.5 {x10E3/uL} 0.7-3.1 (test code = 731-0) Monocytes(Absolute) 0.2 {x10E3/uL} 0.1-0.9 (test code = 742-7) Eos (Absolute) (test 0.1 {x10E3/uL} 0.0-0.4 code = 711-2) Baso (Absolute) (test 0.0 {x10E3/uL} 0.0-0.2 code = 704-7) Immature Granulocytes 0 % Not Estab. (test code = 31763-6) Immature Grans (Abs) 0.0 {x10E3/uL} 0.0-0.1 (test code = 61288-0) NRBC (test code = See Comment 70458-1) Hematology Comments: See Comment (test code = 30609-5) [facility][L] Hepatic Function Panel (7)2019-06-13 07:47:00 Test Item Value Reference Range Interpretation Comments Protein, Total (test code = 7.4 g/dL 6.0-8.5 2885-2) Albumin (test code = 1751-7) 4.1 g/dL 3.6-4.8 Bilirubin, Total (test code = 0.3 mg/dL 0.0-1.2 1974-2) Bilirubin, Direct (test code = 0.08 mg/dL 0.00-0.40 1967-7) Alkaline Phosphatase (test code = 102 {IU/L} 39-117 6768-6) AST (SGOT) (test code = 1920-8) 19 {IU/L} 0-40 ALT (SGPT) (test code = 1742-6) 14 {IU/L} 0-44 [facility][U] XR HAND 2 VWS [id number] 13:54:00 Test Item Value Reference Range Interpretation Comments XR HAND 2 VWS EXAM: XR HAND 2 VWS BILATERAL (test BILATERAL DATE: 05/16/2019 code = XR HAND 2 4:01 PM PROFESSOR OF CHEMISTRY INDICATION: VWS BILATERAL) Bilateral hand pain COMPARISON: None available TECHNIQUE: PA and AP radiographs of both hands DISCUSSION: No acute fracture or malalignment is identified. Small osteophytes without joint space narrowing or cysts of the bilateral interphalangeal and metacarpophalangeal joints. Bilateral severe joint space narrowing, articular surface remodeling, and osteophytes of the first CMC joint. Old, healed left distal radius fracture. Mild joint space and osteophytes of the left radiocarpal joint. IMPRESSION:1. 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 2. Healed left distal radius fracture with mild post traumatic osteoarthrosis of the left radiocarpal joint. 3. Mild osteoarthrosis throughout the bilateral interphalangeal and metacarpophalangeal joints. 05/16/2019 5:00 PM PROFESSOR OF CHEMISTRY Conrado Tai [facility][U] XR FOOT 2 VWS [id number] 13:54:00 Test Item Value Reference Range Interpretation Comments XR FOOT 2 VWS EXAM: XR FOOT 2 VWS BILATERAL (test code BILATERAL DATE: = XR FOOT 2 VWS 05/16/2019 2:38 PM PROFESSOR OF CHEMISTRY BILATERAL) INDICATION: Bilateral foot pain COMPARISON: None available TECHNIQUE: AP and lateral radiographs of the bilateral feet DISCUSSION: No acute fracture or malalignment is identified. Joint space narrowing and osteophytes of the right first MTP joint. Small osteophytes without joint space narrowing of the left first MTP joint. Bilateral small calcaneal enthesophytes. No soft tissue abnormality is identified. IMPRESSION: Moderate right and mild left first MTP osteoarthrosis. 05/16/2019 5:01 PM PROFESSOR OF CHEMISTRY Conrado Tai [facility]] CBC (INCLUDES DIFF/PLT)2019-05-09 07:45:00 Test Item Value Reference Range Interpretation Comments WBC (test code = 6690-2) 4.0 {x10E3/uL} 3.4-10.8 RBC (test code = 789-8) 4.93 {x10E6/uL} 4.14-5.80 Hemoglobin (test code = 13.5 g/dL 13.0-17.7 718-7) Hematocrit (test code = 40.2 % 37.5-51.0 4544-3) MCV (test code = 787-2) 82 fL 79-97 MCH (test code = 785-6) 27.4 pg 26.6-33.0 MCHC (test code = 786-4) 33.6 g/dL 31.5-35.7 RDW; Above High Threshold 15.5 % 12.3-15.4 (test code = 788-0) Platelets (test code = 777-3) 233 {x10E3/uL} 150-450 Neutrophils (test code = 64 % Not Estab. 770-8) Lymphs (test code = 736-9) 29 % Not Estab. Monocytes (test code = 4 % Not Estab. 5905-5) Eos (test code = 713-8) 3 % Not Estab. Basos (test code = 706-2) 0 % Not Estab. Immature Cells (test code = See Comment Immature Cells) Neutrophils (Absolute) (test 2.6 {x10E3/uL} 1.4-7.0 code = 751-8) Lymphs (Absolute) (test code 1.2 {x10E3/uL} 0.7-3.1 = 731-0) Monocytes(Absolute) (test 0.2 {x10E3/uL} 0.1-0.9 code = 742-7) Eos (Absolute) (test code = 0.1 {x10E3/uL} 0.0-0.4 711-2) Baso (Absolute) (test code = 0.0 {x10E3/uL} 0.0-0.2 704-7) Immature Granulocytes (test 0 % Not Estab. code = 14239-7) Immature Grans (Abs) (test 0.0 {x10E3/uL} 0.0-0.1 code = 83089-7) NRBC (test code = 63467-0) See Comment Hematology Comments: (test See Comment code = 53396-3) [facility]] CREATININE [id number] 07:45:00 Test Item Value Reference Range Interpretation Comments Creatinine (test code = 0.86 mg/dL 0.76-1.27 2160-0) eGFR If NonAfricn Am (test 89 mL/min/1.7 >59 code = 73452-5) eGFR If Africn Am (test code = 103 mL/min/1.7 >59 09751-8) [facility]] SED RATE BY MODIFIED [id number] 07:45:00 Test Item Value Reference Range Interpretation Comments Sedimentation Rate-Westergren 13 {mm/hr} 0-30 (test code = 4537-7) [facility][L] Hepatic Function Panel (7)2019-05-09 07:45:00 Test Item Value Reference Range Interpretation Comments Albumin (test code = 1751-7) 3.8 g/dL 3.6-4.8 Bilirubin, Total (test code = 0.3 mg/dL 0.0-1.2 1974-2) Bilirubin, Direct (test code = 0.08 mg/dL 0.00-0.40 1967-7) Alkaline Phosphatase (test code = 87 {IU/L} 39-117 68-6) AST (SGOT) (test code = 1920-8) 16 {IU/L} 0-40 ALT (SGPT) (test code = 1742-6) 16 {IU/L} 0-44 [facility]] SJOGRENS ANTIBODIES (SS-A,SS-B)2019-05-09 07:45:00 Test Item Value Reference Range Interpretation Comments Sjogrens Anti-SS-A (test code = <0.2 0.0-0.9 70434-9) Sjogrens Anti-SS-B (test code = <0.2 0.0-0.9 34953-9) [facility][H] C-REACTIVE [id number] 07:45:00 Test Item Value Reference Range Interpretation Comments C-Reactive Proteint, Quant (test code 8 mg/L 0-10 = 1988-5) [facility][L] Protein Electro.,[id number] 07:45:00 Test Item Value Reference Range Interpretation Comments Protein, Total 7.0 g/dL 6.0-8.5 (test code = 2885-2) Albumin (test 3.2 g/dL 2.9-4.4 code = 2862-1) Wvjqe-1-Qrkubfht 0.3 g/dL 0.0-0.4 (test code = 2865-4) Imisi-0-Ciohztyo 0.8 g/dL 0.4-1.0 (test code = 2868-8) Beta Globulin 1.1 g/dL 0.7-1.3 (test code = 2871-2) Gamma Globulin 1.6 g/dL 0.4-1.8 (test code = 2874-6) M-Mauricio (test Not Observed Not Observed code = 82457-3) Globulin, Total 3.8 g/dL 2.2-3.9 (test code = 68613-3) A/G Ratio (test 0.8 0.7-1.7 code = 1759-0) Please Note: See Comment Protein electro phoresis (test code = scan will follo w via Please Note:) computer, mail , saracosumit faria. PDF (test code = . PDF) [facility][QL] IMMUNOFIXATION, [id number] 07:45:00 Test Item Value Reference Range Interpretation Comments Immunofixation See Comment An apparent n ormal Result, Serum (test immunofi xation code = 98999-2) pattern. Immunoglobulin G, Qn, 1315 mg/dL 700-1600 Serum (test code = 2465-3) Immunoglobulin A, Qn, 319 mg/dL 61-437 Serum (test code = 2458-8) Immunoglobulin M, Qn, 393 mg/dL 20-172 Serum; Above High Threshold (test code = 2472-9) [facility]] ANGIOTENSIN CONVERTING ENZYME (ALDAIR) 2019-05-09 07:45:00 Test Item Value Reference Range Interpretation Comments ALDAIR (test code = 2742-5) 25 U/L 14-82 [facility][L] CCP Antibodies [id number] 07:45:00 Test Item Value Reference Range Interpretation Comments CCP Antibodies IgG/IgA; >250 0-19 Nega tive Above High Threshold <20 (test code = 32380-6) Weak positive 20 - 39 Moderate positi ve 40 - 59 Strong positive >59 [facility]] HLA-B27, DNA [id number] 07:45:00 Test Item Value Reference Range Interpretation Comments HLA-B27 Negative HLA-B*27 Negati veB27 allele (test code = interpretation for all loci based HLA-B27) on IMGT/HLAdata base version 3.35This test w as developed and its performance characteristics determined by [facility]. It martinez s not been cleared or approvedby [facility] Food and Drug Administration. [facility] CLIA ID Number [id number] .This test was performed using PCR (Polymerase Chain Reaction) /SSOP(Sequence Specific Oligon ucleotide Probes) technique. SBT (SequenceBased Typing) and/or SSP (Sequence Specific Primer s) may be used assupplemental methods when necessary. Ple ase contact HLA CustomerService at if you have any questions. . Director of HLA Laboratory Dr Abel Norwood, PhD [facility] SzcrgqkebfMLMHVQLYSGVG5117-81-96 15:30:008.9[facility] ESTPQBWSYLWQ4818-44-44 15:30:0091[facility] OlepubuYZCFMDYYXLDS3745-42-83 15:30:00 0.9[facility] MkheteyDYGEUJCGCISO4826-71-39 15:30:0018[facility] HermannELECTROLYTES 2013-10-04 15:30:0080[facility] WdbcwvpAYSKTYPEOXNP4081-02-18 15:30:003.9[facility] OcvcijoVADBQYQKHURI8852-29-10 15:30:67275Kxujvbxz DufijziFIHUJYSVWVAR5346-80-81 15:30:0027[facility] JgexnhyNLPNCZOPTHTV7625-47-35 15:30:009.1[facility] MUOYIUOWPMGW1619-48-52 15:30:11853Zyuyvsmn YonanoiQAAUSMLFOA9833-20-61 15:30:00 193[facility] AozqvwkWUHMLMBYBB4681-68-40 15:30:0034.6[facility]annHEMATOLOGY 2013-10-04 15:30:0012.8[facility] RnbqyygECKATFMIAM3796-49-57 15:30:0086.6[facility] DvjnfmnCRCTXDAXXQ8574-91-61 15:30:008.5[facility] PpswplxMFVDUGSYXC4373-81-18 15:30:00 Test Item Value Reference Range Interpretation Comments MCH (test code = MCH) 30.0 pg 27.0-31.0 [facility] QdrxeotZCEWBHASKU0104-82-49 15:30:0041.3[facility] HermannHEMATOLOGY 2013-10-04 15:30:0014.3[facility] UbadfaxLFPASHUYJH6130-58-83 15:30:004.76[facility] GsgalflZZCONZXCQV0567-88-02 15:30:005.9[facility] JjrfbhnFROIDGQOXE4102-20-58 15:30:000.1[facility] CtoydbjSPGQMKRVGU0820-65-47 15:30:000.0[facility] ZBJMFJTMDD3893-46-78 15:30:0027.4[facility] KrezljdFVLRZBOPUJ8584-55-99 15:30:00 5.0[facility] WecvirtWNRXHSGBGB9132-90-31 15:30:001.6[facility] HermannHEMATOLOGY 2013-10-04 15:30:000.3[facility] HljxnfvPFGRWAMIXR4503-27-65 15:30:0064.6[facility] NmrlffzUGUUOBHRQM3335-57-98 15:30:000.6[facility] PxzzlrnVGYBHUPGNH1229-16-03 15:30:003.8[facility] LsxmyapPWLWKIVRYY3627-45-23 15:30:002.4[facility]
--- OUTSIDE RECORDS SUMMARY | 2019-12-22 17:23 | XMS REPORT | Summary of Care ---
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.96, M17.0) Status: Active Leukopenia (288.50, D72.819) Status: Act newton Elevated C-reactive protein (CRP) (790.95, R79.82) Status: Active Elevated sed rate (790.1, R70.0) Status: Active Shoulder pain, bilateral (719.41, M25.511) Status: Active Coronary heart disease (414.00, I25.10) Status: Active Bilateral knee pain (719.46, M25.561) St atus: Active Swelling of both knees (719.06, M25.461) Status: Active Pain and swelling of right wrist (719.43, M25.531) Status: Active Rheumatoid arthritis involving multiple sites with positive rheumatoid factor (714.0, M05.79) Status: Active Long-term use of high-risk medication (V58.69, Z79.899) Status: Active Medications Name Dates Details Meloxicam TABS Refills: 0 Active Methotrexate Sodium 2.5 MG Oral Tablet Take 8 tablets a week. Quantity: 32 Refills: 1 BERNARDO DELANEY M.D. Start : 16-May-2019 Active Folic Acid 1 MG Oral Tablet TAKE 1 TABLET DAILY DIRECTED. Quantity: 30 Refills: 1 BERNARDO DELANEY M.D. Start : 16-May-2019 Active Atorvastatin Calcium TABS Refills: 0 Active Metoprolol Tartrate 25 MG Oral Tablet Refills: 0 Active Aspirin 81 MG TABS Refills: 0 Active Clopidogrel Bisulfate 75 MG Oral Tablet Refills: 0 Active Tamsulosin HCl - 0.4 MG Oral Capsule Refills: 0 Active Advil TABS Refills: 0 Active IBU-Tab 200 MG TABS Refills: 0 Active Meloxicam 15 MG Oral Tablet TAKE 1 TABLET DAILY. Quantity: 30 Refills: 0 BERNARDO DELANEY M.D. Start : 02-Oct-2019 Active Pantoprazole Sodium 20 MG Oral Tablet Delayed Release TAKE 1 TABLET DAILY. Quantity: 30 Refills: 2 BERNARDO DELANEY M.D. Start : 02-Oct-2019 Active Hydroxychloroquine Sulfate 200 MG Oral Tablet TAKE 1 TABLET AND 1/2 TABLET DAILY. Quantity: 45 Refills: 1 BERNARDO DELANEY M.D. Start : 09-Oct-2019 Active predniSONE 5 MG Oral Tablet Take 2 tablet and 1/2 tablet daily. Quantity: 75 Refills: 1 BERNARDO DELANEY M.D. Start : 01-Nov-2019 Active Alendronate Sodium 35 MG Oral Tablet TAKE 1 TABLET ONCE WEEKLY. Quantity: 4 Refills: 2 BERNARDO DELANEY M.D. Start : 02-Nov-2019 Active Enbrel Mini 50 MG/ML Subcutaneous Solution Cartridge INJECT 50MG SUBCUTANEOUSLY ONCE A WEEKLY USING AUTO TOUCH DEVICE. Quantity: 2 Refills: 6 BERNARDO DELANEY M.D. Start : 30-Nov-2019 Active Milliliter Allergies and Adverse Reactions Name Dates Details No Known Allergies (Allergy) Status: Act newton Past Medical History Name Dates Details History of coronary artery disease (V12.59, Z86.79) Status: Resolved Procedures Procedure Dates Details [QL] CBC (INCLUDES DIFF/PLT) Date: 19-Oct-2019 [QL] C-REACTIVE PROTEIN Date: 19-Oct-2019 [QL] CREATININE W/EGFR Date: 19-Oct-2019 [QL] HEPATIC FUNCTION PANEL Date: 19-Oct-2019 [QL] SED RATE BY MODIFIED WESTERGREN Date: 19-Oct-2019 [QL] UREA NITROGEN (BUN) Date: 19-Oct-2019 [QL] QUANTIFERON(R)-TB GOLD Date: 01-Nov-2019 [QL] CBC (INCLUDES DIFF/PLT) Date: 28-Nov-2019 [QL] C-REACTIVE PROTEIN Date: 28-Nov-2019 [QL] CREATININE W/EGFR Date: 28-Nov-2019 [QL] HEPATIC FUNCTION PANEL Date: 28-Nov-2019 [QL] UREA NITROGEN (BUN) Date: 28-Nov-2019 [QL] SED RATE BY MODIFIED WESTERGREN Date: 28-Nov-2019 History of No history of surgery Complet ed Immunization Name Dates Details Immunizations not documented Family History Name Dates Details Family history of rheumatoid arthritis (V17.7, Z82.61) Comments: Family History Status: Active Social History Name Dates Details - Status: Name Dates Details Smoker (finding) Vital Signs Date Test Result Details :55 Systolic blood pressure 155 mm[Hg] Status: Diastolic blood pressure 76 mm[Hg] Status: Heart Rate 65 /min Status: Body height 71 in Status: Weight 160 lb Status: Body mass index (BMI) [Ratio] 22.32 kg/m2 Status: Body surface area Derived from formula 1.92 m2 S tatus: :15 Systolic blood pressure 185 mm[Hg] Status: Diastolic blood pressure 87 mm[Hg] Status: Heart Rate 68 /min Status: Body height 71 in Status: Weight 160 lb Status: Body mass index (BMI) [Ratio] 22.32 kg/m2 Status: Body surface area Derived from formula 1.92 m2 S tatus: Results Date Description Value Details :26 [QL] CBC (INCLUDES DIFF/PLT) WBC 6.0 {x10E3/uL} Range: 3.4-10.8 RBC 3.55 {x10E6/uL} (Below low thre shold) Range: 4.14-5.80 Hemoglobin 10.0 g/dL (Below low threshold) Range: 13.0-17.7 Hematocrit 31.5 % (Below low threshold) Ra nge: 37.5-51.0 MCV 89 fL Range: 79-97 MCH 28.2 pg Range: 26.6-33.0 MCHC 31.7 g/dL Range: 31.5-35.7 RDW 15.0 % Range: 11.6-15.4 Platelets 226 {x10E3/uL} Range: 150-450 Neutrophils 86 % Range: Not Estab . Lymphs 10 % Range: Not Estab . Monocytes 3 % Range: Not Estab . Eos 0 % Range: Not Estab . Basos 1 % Range: Not Estab . Immature Cells Neutrophils (Absolute) 5.1 {x10E3/uL} Range: 1. 4-7.0 Lymphs (Absolute) 0.6 {x10E3/uL} (Below low thr eshold) Range: 0.7-3.1 Monocytes(Absolute) 0.2 {x10E3/uL} Range: 0.1-0 .9 Eos (Absolute) 0.0 {x10E3/uL} Range: 0.0-0.4 Baso (Absolute) 0.0 {x10E3/uL} Range: 0.0-0.2 Immature Granulocytes 0 % Range: Not Estab. Immature Grans (Abs) 0.0 {x10E3/uL} Range: 0.0- 0.1 NRBC Hematology Comments: :26 [L] Hepatic Function Panel (7) Protein, Total 6.6 g/dL Range: 6.0-8.5 Albumin 3.5 g/dL (Below low threshold) Range: 3.8-4.8 Bilirubin, Total 0.3 mg/dL Range: 0.0-1.2 Bilirubin, Direct 0.11 mg/dL Range: 0.00-0. 40 Alkaline Phosphatase 91 {IU/L} Range: 39-1 17 AST (SGOT) 13 {IU/L} Range: 0-40 ALT (SGPT) 25 {IU/L} Range: 0-44 :26 [QL] UREA NITROGEN (BUN) BUN 19 mg/dL Range: 8-27 :26 [QL] CREATININE W/EGFR Creatinine 0.88 mg/dL Range: 0.76-1.27 eGFR If NonAfricn Am 88 mL/min/1.7 Range: >59 eGFR If Africn Am 101 mL/min/1.7 Range: >59 :26 [QL] SED RATE BY MODIFIED WESTERGREN Sedimentation Rate-Westergren 59 {mm/hr} (Above high threshold) Range: 0-30 :26 [QL] CARDIO CRP(R) C-Reactive Protein, Cardiac 69.90 mg/L (Above h igh Range: 0.00-3.00 threshold) Comments: Result s confirmed ondilution. Relative Risk for Future Cardiovascular Event Low <1.00 Aver age 1.00 - 3.00 High >3.00 :30 [QL] HEPATITIS C ANTIBODY Hep C Virus Ab <0.1 {s/co_ratio} Range: 0.0-0. 9 Comments: Negati ve: < 0.8 Indeterminate: 0.8 - 0.9 Positive: > 0.9 . The CDC recommends that a positive HCV antibody result be followed up with a HCV Nucleic Acid Amplification test (915330). : [L] HBsAg Screen HBsAg Screen Negative Range: Negative :30 [QL] HEPATITIS B CORE AB TOTAL Hep B Core Ab, Tot Positive (Abnormal) Range: Negative Comments: Veri fied by repeat analysis : [L] QuantiFERON-TB Gold Plus QuantiFERON Incubation Incubation performed. QuantiFERON Criteria Comments: T he QuantiFERON-TB Gold Plus result is determined by subtractingthe Nil value from either TB antigen (Ag) tube. The mitogen tubeserves as a control for the test. QuantiFERON TB1 Ag Value 0.03 {IU/mL} QuantiFERON TB2 Ag Value 0.02 {IU/mL} QuantiFERON Nil Value 0.02 {IU/mL} QuantiFERON Mitogen Value 1.28 {IU/mL} QuantiFERON-TB Gold Plus Negative Range: Negative Plan of Care Name Dates Details Planned Observations Planned Goals not documented Planned Encounters Appointment; BERNARDO DELANEY M.D. On: 09-Jan-2020 14:15 Interventions Provided Medication ChangesEnbrel Mini 50 MG/ML Subcutaneous Solution Cartridge - Start Instructions Name Dates Details Instructions not documented Encounters Appointment; BERNARDO DELANEY M.D. On: 04-May-2019 13:45 Encounter Diagnosis: Problem not documented Appointment; BERNARDO DELANEY M.D. On: 16-May-2019 13:00 Encounter Diagnosis: Problem not documented Appointment; BERNARDO DELANEY M.D. On: 20-Jun-2019 13:00 Encounter Diagnosis: Problem not documented Appointment; BERNARDO DELANEY M.D. On: 01-Aug-2019 13:00 Encounter Diagnosis: Problem not documented Appointment; BERNARDO DELANEY M.D. On: 02-Oct-2019 14:15 Encounter Diagnosis: Problem not documented Appointment; BERNARDO DELANEY M.D. On: 19-Oct-2019 11:15 Encounter Diagnosis: Problem not documented Appointment; BERNARDO DELANEY M.D. On: 01-Nov-2019 9:45 Encounter Diagnosis: Problem not documented Appointment; BERNARDO DELANEY M.D. On: 28-Nov-2019 13:00 Encounter Diagnosis: Problem not documented
--- OUTSIDE RECORDS SUMMARY | 2019-12-22 17:23 | XMS REPORT | Summary of Care ---
:1950 Author Name Pablo Mack Address Unavailable Unavailable , Care Team Providers Name Role Phone ELAINA Pak Unavailable Unavailable BISI RAJPUT Unavailable Unavailable ELAINA [...] Name Dates Details Meloxicam TABS Refills: 0 M.A.Active Methotrexate Sodium 2.5 MG Oral Tablet Take 8 tablets a week. Quantity: 32 Refills: 1 BERNARDO DELANEY M.D. Start : 16-May-2019 Active Folic Acid 1 MG Oral Tablet TAKE 1 TABLET DAILY DIRECTED. Quantity: 30 Refills: 1 BERNARDO DELANEY M.D. Start : 16-May-2019 Active Atorvastatin Calcium TABS Refills: 0 M.A.Active Metoprolol Tartrate 25 MG Oral Tablet Refills: 0 M.A.Active Aspirin 81 MG TABS Refills: 0 M.A.Active Clopidogrel Bisulfate 75 MG Oral Tablet Refills: 0 M.A.Active Tamsulosin HCl - 0.4 MG Oral Capsule Refills: 0 M.A.Active Advil TABS Refills: 0 M.A.Active IBU-Tab 200 MG TABS Refills: 0 M.A.Active Meloxicam 15 MG Oral Tablet TAKE 1 TABLET DAILY. Quantity: 30 Refills: 0 BERNARDO DELANEY M.D. Start : 02-Oct-2019 Active Pantoprazole Sodium 20 MG Oral Tablet Delayed Release TAKE 1 TABLET DAILY. Quantity: 30 Refills: 2 BERNARDO DELANEY M.D. Start : 02-Oct-2019 Active Hydroxychloroquine Sulfate 200 MG Oral Tablet TAKE 1 TABLET AND 1/2 TABLET DAILY. Quantity: 45 Refills: 1 ELAINA Pak, BERNARDO Start : 09-Oct-2019 Active predniSONE 5 MG Oral Tablet Take 2 tablet and 1/2 tablet daily. Quantity: 75 Refills: 1 ELAINA Pak, BERNARDO Start : 01-Nov-2019 Active Alendronate Sodium 35 MG Oral Tablet TAKE 1 TABLET ONCE WEEKLY. Quantity: 4 Refills: 2 ELAINA Pak, BERNARDO Start : 02-Nov-2019 Active Allergies and Adverse Reactions Name Dates Details [...] (finding) Vital Signs Date Test Result Details [id number] Systolic blood pressure 155 mm[Hg] Status: Diastolic blood pressure 76 mm[Hg] Status: Heart Rate 65 /min Status: Body height 71 in Status: Weight 160 lb Status: Body mass index (BMI) [Ratio] 22.32 kg/m2 Status: Body surface area Derived from formula 1.92 m2 S tatus: [id number] Systolic blood pressure 185 mm[Hg] Status: Diastolic [...] with a HCV Nucleic Acid Amplification test ([id number]). :30 [L] HBsAg Screen HBsAg Screen Negative Range: Negative :30 [QL] HEPATITIS B CORE AB TOTAL Hep B Core Ab, Tot Positive (Abnormal) Range: Negative Comments: Veri fied by repeat analysis [id number] [L] QuantiFERON-TB Gold Plus QuantiFERON Incubation Incubation [...] Appointment; BERNARDO DELANEY M.D. On: 09-Jan-2020 14:15 Instructions Name Dates Details Instructions not documented [...]
--- OUTSIDE RECORDS SUMMARY | 2019-12-22 17:24 | XMS REPORT | Summary of Care ---
[...] ELAINA Pak, BERNARDO Start : 02-Nov-2019 Active Enbrel Mini 50 [...] (finding) Vital Signs Date Test Result Details [id number] Systolic blood pressure 155 mm[Hg] Status: Diastolic blood pressure 76 mm[Hg] Status: Heart Rate 65 /min Status: Body height 71 in Status: Weight 160 lb Status: Body mass index (BMI) [Ratio] 22.32 kg/m2 Status: Body surface area Derived from formula 1.92 m2 S tatus: Results Date Description Value Details Results not documented Plan of Care Name Dates Details Planned [...]
--- OUTSIDE RECORDS SUMMARY | 2019-12-22 17:24 | XMS REPORT | Summary of Care ---
[...] (finding) Vital Signs Date Test Result Details [id number] Systolic blood pressure 155 mm[Hg] Status: Diastolic blood pressure 76 mm[Hg] Status: Heart Rate 65 /min Status: Body height 71 in Status: Weight 160 lb Status: Body mass index (BMI) [Ratio] 22.32 kg/m2 Status: Body surface area Derived from formula 1.92 m2 S tatus: [id number] Systolic blood pressure 185 mm[Hg] Status: Diastolic [...] with a HCV Nucleic Acid Amplification test ([id number]). :30 [L] HBsAg Screen HBsAg Screen Negative Range: Negative :30 [QL] HEPATITIS B CORE AB TOTAL Hep B Core Ab, Tot Positive (Abnormal) Range: Negative Comments: Veri fied by repeat analysis :30 [L] QuantiFERON-TB Gold Plus QuantiFERON Incubation Incubation [...]
--- OUTSIDE RECORDS SUMMARY | 2019-12-22 17:25 | XMS REPORT | Summary of Care ---
:1950 Author Organization [facility] Address [address] [id number] Care Team Providers Name Role Phone MD Eliu Primary Care Provider Reason for Visit Reason Comments Initial Consultation Consult, Test & Treat (Routine) Status Reason Specialty Diagnoses / Procedures Referred By Shahid steele Referred To Contact Closed Diagnoses Other nonspecific abnormal finding of lung field R91.8 (ICD-10-CM) - Other nonspecific abnormal finding of lung field, Antonio James Philip W Procedures [place] OFFICE CONSULTATION NEW/ESTAB PATIENT [address] Nyla Chun [place], [place] [address] [place] [address] [facility] [address] Phone: [place] [address] Fax: Encounter Details Date Type Department Care Team Description 12/12/2019 Office Visit [facility] Jeffy Hatch Initi al Consultation Medicine Thoracic MD [facility] Surgery [address] [facility] [address], [address] [place] [address] [phone] Allergies Active Allergy Reactions Severity Noted Date Comments Lisinopril Itching Medium 12/12/2019 documented as of this encounter (statuses as of 12/18/2019) Medications Medication Sig Dispensed Refills Start End Date Status Date alendronate (FOSAMAX) daily. 0 Active 35 MG tablet 0 atorvastatin (LIPITOR) daily. 0 Active 80 MG tablet 0 clopidogrel (PLAVIX) 75 daily. 0 Active MG Tablet 0 hydroxychloroquine daily. 0 A ctive (PLAQUINIL) 200 MG 0 tablet losartan (COZAAR) 100 daily. 0 Active MG tablet 0 metoprolol (LOPRESSOR) daily. 0 Active 25 MG tablet 0 predniSONE (DELTASONE) daily. 0 Active 5 MG tablet 0 Tamsulosin HCl 0.4 MG daily. 0 Active CAPS 0 pantoprazole (PROTONIX) daily. 0 Active 20 MG tablet 0 methotrexate daily. 0 Active (RHEUMATREX) 2.5 MG 0 tablet aspirin 81 MG tablet daily. 0 Active 9 folic acid (FOLVITE) 1 daily. 0 Active MG tablet 0 Etanercept (ENBREL SC) Inject 0 Active into the skin daily. hydroxychloroquine daily. 0 12/12/19 D iscontinued (PLAQUINIL) 200 MG 9 20 ( *Therapy tablet completed) documented as of this encounter (statuses as of 12/18/2019) Active Problems Problem Noted Date Right upper lobe pulmonary nodule documented as of this encounter (statuses as of 12/18/2019) Social History Tobacco Use Types Packs/Day Years Used Date Former Smoker 1969 - 2018 Smokeless Tobacco: Never Used Alcohol Use Drinks/Week oz/Week Comments Never Alcohol Habits Answer Date Recorded How often do you have a drink containing alcohol? Never 12/12/2019 How many drinks containing alcohol do you have on a typical Not asked day when you are drinking? How often do you have six or more drinks on one occasion? No t asked Sex Assigned at Date Recorded Male 12/07/2019 10:04 AM CDT Job Start Date Occupation Industry Not on file Not on file Not on file Travel History Travel Start Travel End No recent travel history available. COVID-19 Exposure Response Date Recorded In the last month, have you been in contact with No / Unsure 12/12/2019 12:18 PM CDT someone who was confirmed or suspected to have Coronavirus / COVID-19? documented as of this encounter Last Filed Vital Signs Vital Sign Reading Time Taken Comments Blood Pressure 167/76 12/12/2019 1:23 PM CDT Pulse 61 12/12/2019 1:23 PM CDT Temperature 36.3 C (97.4 F) 12/12/2019 1:23 PM CDT Respiratory Rate - - Oxygen Saturation - - Inhaled Oxygen Concentration - - Weight 80.3 kg (177 lb) 12/12/2019 1:23 PM CDT Height 180.3 cm (5' 11") 12/12/2019 1:23 PM CDT Body Mass Index 24.69 12/12/2019 1:23 PM CDT documented in this encounter Progress Notes Jeffy Carrera Jr., MD - 12/12/2019 1:30 PM CDT [facility] THORACIC SURGERY INITIAL CLINIC VISIT Chalo Robertson is a 69 y.o. male with PMHx significant for MD in 06/2019 w/ stent placement currently on Plavix 75mg, CAD, COPD, here for initial surgical evaluation of spiculated mass in the right upperlobe referred by Dr. James. Mr. Robertson states that in September 2019, he began to have symptoms of cough, low- grade fever and chest congestions. Obtained a chest x-ray at that time on 09/26/2019 and noted to have bilateral patchy infiltrates possibly indicative of pneumonia. He was started on antibiotics and instructed to obtain a CT scan to further evaluate. CT on 09/27/2019 showed 17 x 9 mm opacity in right upper lobe. He was thenreferred to Dr. James, table hand who proceeded with PET scan on 10/12/2019, reports dictate a16 mm spiculated RUL nodule with SUV of 2.4. Following, most recently he had a CT in 11/29/2019 noting that the mass has not changed in size since September. PFTs were completed on 12/05/2019 FEV1 1.8 L 54% predicted and DLCO 54% predicted. Patient denies any shortness of breath, chest pain, chest congestion, chills, fatigues, fever, insomnia, weight loss, night sweats or any additional concerns at this time. Of note, patient had an MD in June of 2019 and reports stent placement in his left circumflex artery. He is currently on 75mg Plavix daily. Patient Active Problem List Diagnosis Right upper lobe pulmonary nodule Past Medical History: Diagnosis Date CAD (coronary artery disease) COPD (chronic obstructive pulmonary disease) ([facility]) [facility] Right upper lobe pulmonary nodule [place] [place] Past Surgical History: Procedure Laterality Date HX CATARACT REMOVAL HX STENT/ANGIOPLASTY Current Outpatient Medications Medication Sig Dispense Refill alendronate (FOSAMAX) 35 MG tablet daily. aspirin 81 MG tablet daily. atorvastatin (LIPITOR) 80 MG tablet daily. clopidogrel (PLAVIX) 75 MG Tablet daily. Etanercept (ENBREL SC) Inject into the skin daily. folic acid (FOLVITE) 1 MG tablet daily. hydroxychloroquine (PLAQUINIL) 200 MG tablet daily. losartan (COZAAR) 100 MG tablet daily. methotrexate (RHEUMATREX) 2.5 MG tablet daily. metoprolol (LOPRESSOR) 25 MG tablet daily. pantoprazole (PROTONIX) 20 MG tablet daily. predniSONE (DELTASONE) 5 MG tablet daily. Tamsulosin HCl 0.4 MG CAPS daily. No current facility-administered medications for this visit. Allergies Allergen Reactions Lisinopril Itching No family history on file. Social History Socioeconomic History Marital status: Spouse name: Not on file Number of children: Not on file Years of education: Not on file Highest education level: Not on file Occupational History Not on file Social Needs Financial resource strain: Not on file Food insecurity: Worry: Not on file Inability: Not on file Transportation needs: Medical: Not on file Non-medical: Not on file Tobacco Use Smoking status: Former Smoker Start date: 1969 Quit date: 2019 Years since quittin.4 Smokeless tobacco: Never Used Substance and Sexual Activity Alcohol use: Never Frequency: Never Drug use: Not on file Sexual activity: Not on file Lifestyle Physical activity: Days per week: Not on file Minutes per session: Not on file Stress: Not on file Relationships Social connections: Talks on phone: Not on file Gets together: Not on file Attends advent service: Not on file Active member of club or organization: Not on file Attends meetings of clubs or organizations: Not on file Relationship status: Not on file Intimate partner violence: Fear of current or ex partner: Not on file Emotionally abused: Not on file Physically abused: Not on file Forced sexual activity: Not on file Other Topics Concerns: Not on file Social History Narrative Not on file REVIEW OF SYSTEMS: Constitutional: Negative for chills, activity change and appetite change. HENT: Negative for hearing loss, ear pain, facial swelling and neck pain. Eyes: Negative for pain, discharge and itching. Respiratory: Negative for shortness of breath, apnea, cough and chest tightness. Cardiovascular: Negative for chest pain and palpitations. Endocrine: Negative for cold intolerance and heat intolerance. Gastrointestinal: Negative for abdominal pain, nausea, vomiting, diarrhea, and constipation. Genitourinary: Negative for urgency, hematuria and flank pain. Skin: Negative for rashes or non-healing ulcers. Neurological: Negative for dizziness, seizures, syncope, light-headedness and headaches. Psychiatric/Behavioral: Negative for hallucinations, confusion, depression and anxiety. EXAM: Blood pressure 167/76, pulse 61, temperature 97.4 F (36.3 C), temperature source Oral, height 5'11" (1.803 m), weight 177 lb (80.3 kg). Body mass index is 24.69 kg/m. Constitutional: he is oriented to person, place, and time. Appears well- developed, well-nourished. Head: Normocephalic and atraumatic. Eyes: EOM are normal. Pupils are equal, round, and reactive to light. Neck: Normal range of motion. No thyromegaly present. Cardiovascular: Normal rate and rhythm. No murmurs. Pulmonary/Chest: Effort normal. Clear breath sounds in all lung nayak. No respiratory distress. [place]. No chest wall tenderness. Abdominal: Soft. No distension. No tenderness. No rebound. Musculoskeletal: Normal range of motion. No weakness. Neurological: Alert and oriented to person, place, and time. Cranial Nerves II- VII grossly intact Skin: Skin is warm and dry. No rash noted. No erythema. Psychiatric: Appropriate mood and affect. Lymphatic: No Cervical, clavicular, femoral adenopathy. Vascular: Carotids 2+ bilateral, Radials 2+ bilateral STUDIES: Chest X-RAY (09/26/2019): Chest CT (09/27/2019): PET (10/12/2019): CT THORAX WO CONTRAST (11/29/2019): PFTs (12/05/2019): IMPRESSION & RECOMMENDATIONS: Chalo Robertson is a 69 y.o. male with PMHx significant for MD in 06/2019 w/ stent placement currently on Plavix 75mg, CAD, COPD, here for initial surgical evaluation of spiculated mass in the right upperlobe referred by Dr. James. Patient was seen and assessed today in clinic. Available imaging and reports were discussed with thepatient. He is informed of spiculated right upper lobe mass of 16 mm and has agreed to proceed with surgical removal to include flexible bronchoscopy, thoracoscopic right upper lobe segmentectomy, possible lobectomy (possible open) and lymph node dissection (possible open) for surgery tentatively scheduled on 12/20/2019. He has signed informed consents in clinic. We will have him obtain cardiac clearance for surgery from certified adaptive physical educator, Dr. Castro, prior to surgery. Patient verbalized understanding of the treatment plan and has no additional concerns or questions at this time. I, Woody Dias PA-C, am scribing for, and in the presence of, Dr. Carrera. Woody Dias PA-C Thoracic Surgery Mr. Robertson has an intermediate risk nodule, amenable to a VATS segmentectomy. documented in this encounter Plan of Treatment Date Type Specialty Care Team Description 12/20/2019 Appointment Thoracic Surgery Jeffy Carrera Jr., MD [address] [facility] [address] [place] [phone] Health Maintenance Due Date Last Done Comments COLON CANCER SCREENING: COLONOSCOPY 1950 TETANUS SHOT (ADULT) 1965 HEPATITIS C SCREENING 1968 AAA Screen 09/17/2015 FALL SCREEN 09/17/2015 PNEUMOVAX >=65 (PPSV23) 09/17/2015 PREVNAR >= 65 (PCV13) 09/17/2015 MEDICARE IPPE (WELCOME TO MEDICARE) 07/05/2019 FLU VACCINE > 6 MONTHS 02/03/2020 documented as of this encounter Results Not on filedocumented in this encounter Visit Diagnoses Diagnosis Right upper lobe pulmonary nodule - Prim tricia documented in this encounter Insurance Payer Benefit Plan / Subscriber ID Effective Phone Address T ype Group Dates [facility] xxxxxxxxx 2019-Prese [address] Medicare HEALTHCARE ADVANTAGE [facility] [phone] [facility]/SELECT xxxxxxxxx 2019- [address] [address] HMO HEALTHCARE PLUS - [facility] [address] [place] [address] [facility] xxxxxxxxx 2019-12/13/ [address] Medicare HEALTHCARE ADVANTAGE 2019 [facility] [address] documented as of this encounter
[2019-12-22 17:29] LABS: Absolute Lymphocytes (CBC) 0.8 K/uL (0.7-4.9); Basophils % 0.6 % (0-1.3); Hematocrit 30.7 % (39.6-49.0); Lymphocytes % 18.6 % (15.3-44.8); MPV 7.9 fL (7.6-11.3); RBC Red Blood Cell Count 3.46 M/uL (4.33-5.43)
--- NOTE | 2019-12-22 17:36 | RAD REPORT ---
EXAM DESCRIPTION: RAD - Chest Single View - 12/22/2019 5:29 pm CLINICAL HISTORY: DYSPNEA Chest pain. COMPARISON: Chest Pa And Lat (2 Views) dated 09/26/2019; Chest Pa And Lat (2 Views) dated 03/31/2019; Chest Pa And Lat (2 Views) dated 05/14/2017; CHEST PA AND LAT 2 VIEW dated 04/10/2014; Thorax Wo Con d ated 11/29/2019; Ct Skull/Thigh dated 10/12/2019; Thorax Wo Con dated 09/27/2019 FINDINGS: Portable technique limits examination quality. The lungs are grossly clear. A large soft density is identified in the region of the right peritrache al stripe and right-sided the mediastinum. Recommend CT chest with contrast for follow-up assessment.
[2019-12-22 17:40] LABS: Protime INR 0.99
[2019-12-22 17:52] LABS: Urine Blood NEGATIVE (NEG); Urine Glucose NEGATIVE (NEG); Urine Protein 2+ (NEG)
[2019-12-22 17:52] LABS: Albumin 2.9 g/dL (3.4-5.0); Bilirubin Direct 0.1 mg/dL (0-0.2); Bilirubin Total 0.5 mg/dL (0.2-1.0); Magnesium 1.8 mg/dL (1.8-2.4); Troponin (Emerg Dept Use Only) 0.09 ng/mL (0.0-0.045)
--- NOTE | 2019-12-22 18:33 | RAD REPORT ---
EXAM DESCRIPTION: CT - Thorax W/ Con CLINICAL HISTORY: Chest pain chest mass. Recent Lobectomy COMPARISON: Thorax Wo Con dated 11/29/2019 FINDINGS: Mild diffuse COPD. Postsurgical changes are present involving the right upper lobe. Modera te right-sided hydropneumothorax (20-25% of lung volume) is seen, presumably postsurgical in etiology . Poorly defined areas of pulmonary opacification in the medial right lung base likely postoperative in nature, although superimposed infiltrate/pneumonia can't be excluded. No axillary, mediastinal or hilar adenopathy. No concerning bony finding. No gross upper abdominal finding. All CT scans are performed using dose optimization technique as appropriate and may include automated exposure control or mA/KV adjustment according to patient size. IMPRESSION: Postsurgical changes are present in the right upper lobe. Moderate right-sided hydropneu mothorax noted, likely postsurgical in nature. Pulmonary opacities in the medial right upper lobe favored to be postsurgical in etiology, although d eveloping infiltrate/pneumonia in this region can't be ruled out.
[2019-12-22] MEDS ORDERED: FUROSEMIDE 20 MG/ 2ML VIAL ONE (20:32)
[2019-12-22] MEDS ORDERED: FUROSEMIDE 40 MG/4 ML VIAL ONE (20:32)
[2019-12-22] MEDS ORDERED: ALBUTEROL 2.5 MG/3 ML NEB SOL ONE (20:32)
--- NOTE | 2019-12-22 20:39 | ER ---
Nurse's Notes [facility] Name: Chalo Robertson Age: 69 yrs Sex: Male : 1950 Arrival Date: 12/22/2019 Time: 16:35 Bed 6 Private MD: Diagnosis: Acute combined systolic (congestive) and diastolic (congestive) heart failure;Acute respiratory failure Presentation: 12/21 16:39 Acuity: ENEDINA 2 hb 16:51 Chief complaint: Patient states: Recently had a R sided lobectomy, d/c from [facility] yesterday, c/o SOB and rapid respirations since this morning, denies chest pain, N/V. Coronavirus screen: Patient denies a cough. Patient reports shortness of breath or difficulty breathing. Patient reports a measured and/or subjective temperature greater than 100.4F. Patient denies travel on a cruise ship or to a country the [facility] currently lists as an affected area. Patient denies contact with known and/or suspected case of COVID-19. Ebola Screen: No symptoms or risks identified at this time. Initial Sepsis Screen: Does the patient meet any 2 criteria? RR > 20 per min. Does the patient have a suspected source of infection? Yes: Other: recent surgery. Risk Assessment: Do you want to hurt yourself or someone else? Patient reports no desire to harm self or others. Onset of symptoms was December 22, 2019. 16:51 Method Of Arrival: Wheelchair Triage Assessment: 21:14 Respiratory: Onset: The symptoms/episode began/occurred suddenly, the patient has mild rv shortness of breath. Historical: - Allergies: 18:16 Lisinopril; ph - Home Meds: 18:16 alendronate 35 mg oral tab 1 tab once wkly [Active]; atorvastatin 80 mg oral tab 1 tab ph once daily [Active]; clopidogrel 75 mg oral tab 1 tab once daily [Active]; hydroxychloroquine 200 mg oral tab 1 tab once daily [Active]; losartan 100 mg oral tab 1 tab once daily [Active]; metoprolol tartrate 25 mg Oral tab 1 tab once daily [Active]; prednisone 5 mg Oral tab once daily [Active]; pantoprazole 20 mg oral TbEC 1 tab once daily [Active]; methotrexate sodium 2.5 mg Oral tab 1 tab once daily [Active]; aspirin 81 mg Oral chew 1 tab once daily [Active]; folic acid 1 mg Oral tab 1 tab once daily [Active]; Enbrel subcutaneous subcutaneous [Active]; - PMHx: 18:16 Myocardial infarction; Cancer, Lung; Hypertension; High Cholesterol; COPD; Rheumatoid ph Arthritis; - PSHx: 21:52 Lobectomy; rr5 - Immunization history:: Adult Immunizations up to date. - Social history:: Smoking status: Patient/guardian denies using tobacco, Stopped _ months ago 6. Screenin:53 Abuse screen: Denies threats or abuse. Denies injuries from another. Nutritional ph screening: No deficits noted. Tuberculosis screening: No symptoms or risk factors identified. Fall Risk None identified. Assessment: 16:45 General: Appears in no apparent distress. uncomfortable, slender, well groomed, ph Behavior is cooperative, appropriate for age, anxious, Denies fever. Pain: Denies pain. Neuro: Level of Consciousness is awake, alert, obeys commands, Oriented to person, place, time, situation. Cardiovascular: Reports fatigue, shortness of breath, Capillary refill < 3 seconds in bilateral fingers Patient's skin is warm and dry. Respiratory: Reports shortness of breath at rest Airway is patent Respiratory effort is even, labored, Respiratory pattern is tachypnea Breath sounds with wheezes. GI: No signs and/or symptoms were reported involving the gastrointestinal system. : Reports burning with urination. Derm: Skin is intact, Skin is pink, warm \T\ dry. Musculoskeletal: Circulation, motion, and sensation intact. Range of motion: intact in all extremities. 18:57 Cardiovascular: Rhythm is sinus rhythm. ph 19:00 Reassessment: Patient appears in no apparent distress at this time. Patient and/or ph family updated on plan of care and expected duration. Pain level reassessed. Patient is alert, oriented x 3, equal unlabored respirations, skin warm/dry/pink. 19:30 General: Appears in no apparent distress. comfortable, Behavior is calm, cooperative, rr5 appropriate for age. 19:30 Neuro: Level of Consciousness is awake, alert, obeys commands, Oriented to person, rr5 place, time, situation. Cardiovascular: Capillary refill < 3 seconds Patient's skin is warm and dry. Respiratory: Airway is patent Respiratory effort is even, unlabored, Respiratory pattern is regular, symmetrical, tachypnea. GI: No signs and/or symptoms were reported involving the gastrointestinal system. EENT: No signs and/or symptoms were reported regarding the EENT system. Derm: Skin is intact, is healthy with good turgor, Skin is pink, warm \T\ dry. Musculoskeletal: Circulation, motion, and sensation intact. Capillary refill < 3 seconds. 20:00 Reassessment: Patient appears in no apparent distress at this time. snacks given. rr5 20:51 Reassessment: marita robertson [id number]. Reassessment: Patient appears in no rr5 apparent distress at this time. Patient is alert, oriented x 3, equal unlabored respirations, skin warm/dry/pink. reassess by ED provider, advised for admission patient agreed for the plan of care. 21:49 Reassessment: Patient appears in no apparent distress at this time. Patient is alert, rr5 oriented x 3, equal unlabored respirations, skin warm/dry/pink. for transfer to room 201 vitally stable. Vital Signs: 16:51 BP 205 / 86; Pulse 76; Resp 24; Temp 100.1; Pulse Ox 98% on 2 lpm NC; ph 17:20 Pulse Ox 93% on R/A; ph 18:21 BP 167 / 78; Pulse 75; Resp 20; Pulse Ox 98% on 2 lpm NC; ph 18:57 BP 167 / 72; Pulse 89; Resp 18; Pulse Ox 98% on 2 lpm NC; ph 19:44 BP 160 / 69; Pulse 85; Resp 25; Temp 99; Pulse Ox 99% on 2 lpm NC; rr5 20:40 BP 126 / 63; Pulse 80; Resp 28; Pulse Ox 98% on 3 lpm NC; rr5 21:14 BP 159 / 67; Pulse 89; Resp 29; Pulse Ox 98% on 3 lpm NC; rr5 21:45 BP 142 / 70; Pulse 111; Resp 26; Pulse Ox 98% on 3 lpm NC; rr5 22:10 BP 118 / 57; Pulse 105; Resp 24; Pulse Ox 96% on 3 lpm NC; rr5 ED Course: 16:35 Patient arrived in ED. bp1 16:38 Sudheer Rand PA is PHCP. jr8 16:38 Osorio Tinoco MD is Attending Physician. jr8 16:39 Triage completed. hb 16:50 Ioana Santiago, RN is Primary Nurse. ph 17:10 Initial lab(s) drawn, by me, sent to lab. Inserted saline lock: 22 gauge in left ph antecubital area, using aseptic technique. Blood collected. 17:32 XRAY Chest (1 view) In Process Unspecified. EDMS 18:17 Arm band placed on. ph 18:21 No provider procedures requiring assistance completed. ph 18:23 CT Chest W/ Con In Process Unspecified. EDMS 18:23 Patient has correct armband on for positive identification. Placed in gown. Bed in low ph position. Call light in reach. Side rails up X2. surveillance system monitor on. Pulse ox on. NIBP on. Door closed. Noise minimized. Warm blanket given. Head of bed elevated. 18:54 EKG done, by ED staff, reviewed by Sudheer COOPER. dh3 20:21 EKG done, by ED staff, reviewed by Sudheer COOPER. rr5 20:38 Debbie Mcghee MD is Hospitalizing Provider. jr8 21:49 Patient admitted, IV remains in place. intact, No redness/swelling at site. rr5 Administered Medications: 20:25 Drug: Albuterol 2.5 mg Route: Inhalation; rr5 20:45 Drug: Albuterol 2.5 mg Route: Inhalation; rr5 20:45 Drug: Lasix 60 mg Route: IVP; Site: left forearm; rr5 21:45 Follow up: Response: No adverse reaction rr5 21:12 Drug: Albuterol 2.5 mg Route: Inhalation; rr5 21:51 Follow up: Response: No adverse reaction rr5 21:34 Drug: AtroVENT Aerosol 0.5 mg Route: Inhalation; rr5 21:50 Follow up: Response: No adverse reaction rr5 Intake: 20:30 PO: 200ml (Soft Drink); Total: 200ml. rr5 Output: 21:34 Urine: 510ml (Voided); Total: 510ml. rr5 22:17 Urine: 350ml (Voided); Total: 860ml. rr5 Outcome: 20:38 Decision to Hospitalize by Provider. jr8 21:49 Admitted to Med/surg accompanied by nurse, via stretcher, room 201, with oxygen, with rr5 chart, Report called to mary 21:49 Condition: stable 21:49 Instructed on the need for admit, Demonstrated understanding of instructions. 22:17 Patient left the ED. rr5 Signatures: Dispatcher [employer] EDMS Sudheer Rand PA PA jr8 Ioana Santiago RN RN Marika Hager RN RN Abril Paris 3 Haider Villeda RN RN rv Jered Shi RN RN rr5 Carmel Anthony bp1 Corrections: (The following items were deleted from the chart) 20:22 19:30 Respiratory: Airway is patent Respiratory effort is even, unlabored, Respiratory rr5 pattern is regular, symmetrical, rr5 20:22 19:44 BP 160 / 69; Pulse 85bpm; Resp 17bpm; Pulse Ox 99% 2 lpm Nasal Cannula; Temp 99F; rr5 rr5 21:46 21:14 BP 159 / 67; Pulse 89bpm; Resp 17bpm; Pulse Ox 98% 3 lpm Nasal Cannula; rv rr5
--- NOTE | 2019-12-22 20:39 | EDPHYS ---
[facility] Name[facility] Chalo [facility] Age: 69 yrs Sex: Male : 1950 Arrival Date: 12/22/2019 Time: 16:35 Bed 6 Private MD: ED Physician Osorio Tinoco HPI: 12/21 20:38 This 69 yrs old Male presents to ER via Wheelchair with complaints of jr8 Shortness Of Breath. 20:38 The patient has shortness of breath at rest. Onset: The symptoms/episode began/occurred jr8 acutely, today. Duration: The symptoms are continuous. The patient's shortness of breath is aggravated by light activity, talking, walking, is alleviated by nothing. Associated signs and symptoms: The patient has no apparent associated signs or symptoms. Severity of symptoms: At their worst the symptoms were moderate in the emergency department the symptoms are unchanged. The patient has not experienced similar symptoms in the past. The patient has been recently seen by a physician:. Patient discharged yesterday from [facility] from having right upper lobectomy for lung cancer. Patient stated that he was doing well and felt fine to go home. Today all of a sudden had shortness of breath worse with exertion. Historical: - Allergies: 18:16 Lisinopril; ph - Home Meds: 18:16 alendronate 35 mg oral tab 1 tab once wkly [Active]; atorvastatin 80 mg oral tab 1 tab ph once daily [Active]; clopidogrel 75 mg oral tab 1 tab once daily [Active]; hydroxychloroquine 200 mg oral tab 1 tab once daily [Active]; losartan 100 mg oral tab 1 tab once daily [Active]; metoprolol tartrate 25 mg Oral tab 1 tab once daily [Active]; prednisone 5 mg Oral tab once daily [Active]; pantoprazole 20 mg oral TbEC 1 tab once daily [Active]; methotrexate sodium 2.5 mg Oral tab 1 tab once daily [Active]; aspirin 81 mg Oral chew 1 tab once daily [Active]; folic acid 1 mg Oral tab 1 tab once daily [Active]; Enbrel subcutaneous subcutaneous [Active]; - PMHx: 18:16 Myocardial infarction; Cancer, Lung; Hypertension; High Cholesterol; COPD; Rheumatoid ph Arthritis; - PSHx: 21:52 Lobectomy; rr5 - Immunization history:: Adult Immunizations up to date. - Social history:: Smoking status: Patient/guardian denies using tobacco, Stopped _ months ago 6. ROS: 20:38 Eyes: Negative for injury, pain, redness, and discharge, ENT: Negative for injury, jr8 pain, and discharge, Neck: Negative for injury, pain, and swelling, Cardiovascular: Negative for chest pain, palpitations, and edema, Abdomen/GI: Negative for abdominal pain, nausea, vomiting, diarrhea, and constipation, Back: Negative for injury and pain, MS/Extremity: Negative for injury and deformity, Skin: Negative for injury, rash, and discoloration, Neuro: Negative for headache, weakness, numbness, tingling, and seizure. 20:38 Respiratory: Positive for dyspnea on exertion, shortness of breath. Exam: 20:38 Eyes: Pupils equal round and reactive to light, extra-ocular motions intact. Lids and jr8 lashes normal. Conjunctiva and sclera are non-icteric and not injected. Cornea within normal limits. Periorbital areas with no swelling, redness, or edema. ENT: Nares patent. No nasal discharge, no septal abnormalities noted. Tympanic membranes are normal and external auditory canals are clear. Oropharynx with no redness, swelling, or masses, exudates, or evidence of obstruction, uvula midline. Mucous membranes moist. Neck: Trachea midline, no thyromegaly or masses palpated, and no cervical lymphadenopathy. Supple, full range of motion without nuchal rigidity, or vertebral point tenderness. No Meningismus. Cardiovascular: Regular rate and rhythm with a normal S1 and S2. No gallops, murmurs, or rubs. Normal PMI, no JVD. No pulse deficits. Abdomen/GI: Soft, non-tender, with normal bowel sounds. No distension or tympany. No guarding or rebound. No evidence of tenderness throughout. Back: No spinal tenderness. No costovertebral tenderness. Full range of motion. Skin: Warm, dry with normal turgor. Normal color with no rashes, no lesions, and no evidence of cellulitis. MS/ Extremity: Pulses equal, no cyanosis. Neurovascular intact. Full, normal range of motion. Neuro: Awake and alert, GCS 15, oriented to person, place, time, and situation. Cranial nerves II-XII grossly intact. Motor strength 5/5 in all extremities. Sensory grossly intact. Cerebellar exam normal. Normal gait. 20:38 Respiratory: mild respiratory distress is noted, Respirations: tachypnea, Breath sounds: rales, that are mild, are located in both bases, decreased breath sounds, that are mild, are heard in the right upper lobe and right posterior upper lobe, wheezing: expiratory that is mild, is heard in the left posterior lower lobe. Vital Signs: 16:51 BP 205 / 86; Pulse 76; Resp 24; Temp 100.1; Pulse Ox 98% on 2 lpm NC; ph 17:20 Pulse Ox 93% on R/A; ph 18:21 BP 167 / 78; Pulse 75; Resp 20; Pulse Ox 98% on 2 lpm NC; ph 18:57 BP 167 / 72; Pulse 89; Resp 18; Pulse Ox 98% on 2 lpm NC; ph 19:44 BP 160 / 69; Pulse 85; Resp 25; Temp 99; Pulse Ox 99% on 2 lpm NC; rr5 20:40 BP 126 / 63; Pulse 80; Resp 28; Pulse Ox 98% on 3 lpm NC; rr5 21:14 BP 159 / 67; Pulse 89; Resp 29; Pulse Ox 98% on 3 lpm NC; rr5 21:45 BP 142 / 70; Pulse 111; Resp 26; Pulse Ox 98% on 3 lpm NC; rr5 22:10 BP 118 / 57; Pulse 105; Resp 24; Pulse Ox 96% on 3 lpm NC; rr5 MDM: 16:38 Patient medically screened. jr8 20:36 Data reviewed: vital signs, nurses notes, lab test result(s), EKG, radiologic studies, jr CT scan, plain films. Data interpreted: Pulse oximetry: on room air is 99 %. Interpretation: normal. Counseling: I had a detailed discussion with the patient and/or guardian regarding: the historical points, exam findings, and any diagnostic results supporting the discharge/admit diagnosis, lab results, radiology results, the need for further work-up and treatment in the hospital. ED course: Spoke with Dr. 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 Most likely mild CHF present. Advised that he would like us to keep him her for stabilization for now. If worse that we can transfer back to [facility]. I spoke with Dr. Mcghee and patient about this. Both are comfortable with decision . 12/21 16:38 Order name: Basic Metabolic Panel; Complete Time: 18:03 [facility] 12/21 16:38 Order name: CBC with Diff; Complete Time: 18:03 [facility] 12/21 16:38 Order name: LFT's; Complete Time: 18:03 8 12/21 16:38 Order name: Magnesium; Complete Time: 18:03 [facility] 12/21 16:38 Order name: NT PRO-BNP; Complete Time: 18:03 [facility] 12/21 16:38 Order name: PT-INR; Complete Time: 18:03 [facility] 12/21 16:38 Order name: Troponin (emerg Dept Use Only); Complete Time: 18:03 [facility] 12/21 16:41 Order name: Blood Culture Adult (2) [facility] 12/21 16:41 Order name: Procalcitonin; Complete Time: 18:59 [facility] 12/21 16:41 Order name: Lactate; Complete Time: 18:03 [facility] 12/21 17:41 Order name: Urine Dipstick--Ancillary (enter results); Complete Time: 18:03 12/21 21:32 Order name: CBC with Automated Diff EDMS 12/21 21:33 Order name: CBC with Automated Diff EDMS 12/21 21:33 Order name: Comprehensive Metabolic Panel EDMS 12/21 16:38 Order name: XRAY Chest (1 view); Complete Time: 18:03 [facility] 12/21 18:04 Order name: CT Chest W/ Con; Complete Time: 18:59 [facility] 12/21 21:32 Order name: Echo with Doppler EDMS 12/21 21:33 Order name: Comprehensive Metabolic Panel EDMS 12/21 21:33 Order name: Lactate EDMS 12/21 21:33 Order name: Lactate EDMS 12/21 21:33 Order name: Lipid Profile EDMS 12/21 21:33 Order name: Lipid Profile EDMS 12/21 21:33 Order name: Magnesium EDMS 12/21 21:33 Order name: Magnesium EDMS 12/21 21:33 Order name: NT PRO-BNP EDMS 12/21 21:33 Order name: NT PRO-BNP EDMS 12/21 21:33 Order name: Phosphorus EDMS 12/21 21:33 Order name: Phosphorus EDMS 12/21 16:38 Order name: EKG; Complete Time: 16:39 8 12/21 16:38 Order name: Cardiac monitoring; Complete Time: 18:09 8 12/21 16:38 Order name: EKG - Nurse/Tech; Complete Time: 18:55 12/21 16:38 Order name: IV Saline Lock; Complete Time: 18:09 8 12/21 16:38 Order name: Labs collected and sent; Complete Time: 18:09 8 12/21 16:38 Order name: O2 Per Protocol; Complete Time: 18:09 8 12/21 16:38 Order name: O2 Sat Monitoring; Complete Time: 18:09 8 12/21 20:21 Order name: EKG - Nurse/Tech; Complete Time: 20:21 rr5 12/21 21:32 Order name: CONS Physician Consult [facility] 12/21 21:32 Order name: Heart Healthy EDOH Administered Medications: 20:25 Drug: Albuterol 2.5 mg Route: Inhalation; rr5 20:45 Drug: Albuterol 2.5 mg Route: Inhalation; rr5 20:45 Drug: Lasix 60 mg Route: IVP; Site: left forearm; rr5 21:45 Follow up: Response: No adverse reaction rr5 21:12 Drug: Albuterol 2.5 mg Route: Inhalation; rr5 21:51 Follow up: Response: No adverse reaction rr5 21:34 Drug: AtroVENT Aerosol 0.5 mg Route: Inhalation; rr5 21:50 Follow up: Response: No adverse reaction rr5 Disposition: 12/22 08:39 Co-signature as Attending Physician, Osorio Tinoco MD I agree with the assessment and kdr plan of care. Disposition: 12/22/19 20:38 Hospitalization ordered by Debbie Mcghee for Inpatient Admission. Preliminary diagnosis are Acute combined systolic (congestive) and diastolic (congestive) heart failure, Acute respiratory failure. - Bed requested for Telemetry/MedSurg (Inpatient). - Status is Inpatient Admission. rr5 - Condition is Fair. - Problem is new. - Symptoms have improved. Signatures: Dispatcher [employer] EDOH Ej Silveira RN RN sg Rittger, Kevin, MD MD kdr Roszak, Josh, PA PA jr8 Ioana Santiago RN RN Shi, Jered, RN RN rr5 Corrections: (The following items were deleted from the chart) 12/21 20:56 20:38 Hospitalization Ordered by Debbie Mcghee MD for Inpatient Admission. Preliminary sg diagnosis is Acute combined systolic (congestive) and diastolic (congestive) heart failure; Acute respiratory failure. Bed requested for Telemetry/MedSurg (Inpatient). Status is Inpatient Admission. Condition is Fair. Problem is new. Symptoms have improved. jr8 22:17 20:56 12/22/2019 20:38 Hospitalization Ordered by Debbie Mcghee MD for Inpatient rr5 Admission. Preliminary diagnosis is Acute combined systolic (congestive) and diastolic (congestive) heart failure; Acute respiratory failure. Bed requested for Telemetry/MedSurg (Inpatient). Status is Inpatient Admission. Condition is Fair. Problem is new. Symptoms have improved. sg
[2019-12-22] MEDS ORDERED: ONDANSETRON 4 MG/2 ML VIAL IV PRN (21:27)
[2019-12-22] MEDS ORDERED: ACETAMINOPHEN 500 MG TAB PO PRN (21:27)
[2019-12-22] MEDS ORDERED: IPRATROPIUM BROM 0.5MG/2.5ML ONE (21:40)
[2019-12-22] MEDS ORDERED: NA CHLORIDE 0.9% 1,000 ML IV SCH (22:00)
[2019-12-22 22:41] VITALS: BMI 23.7
[2019-12-22] MEDS: ENOXAPARIN 40 MG/0.4 ML SQ SCH (23:09)
[2019-12-23] MEDS: FUROSEMIDE 40 MG/4 ML VIAL IV SCH ×2 (00:07→08:16)
--- NOTE | 2019-12-23 05:54 | EKG ---
Test Date: 2019-12-22 Test Time: 18:41:19 Power Generation Technician: CITLALLI MEASUREMENT RESULTS: Intervals: Rate: 77 SD: 164 QRSD: 114 QT: 382 QTc: 432 [place]: P: 72 SD: 164 QRS: 50 T: 55 INTERPRETIVE STATEMENTS: Normal sinus rhythm Possible Left atrial enlargement Incomplete right bundle branch block Borderline ECG Compared to ECG 06/05/2011 13:20:25 Incomplete right bundle-branch block now present Electronically Signed On 12-23-19 05:53:32 CDT by Parvez Cloud
[2019-12-23 06:39] LABS: Albumin 2.6 g/dL (3.4-5.0); Basophils % 0.6 % (0-1.3); Bilirubin Total 0.4 mg/dL (0.2-1.0); Lymphocytes % 21.2 % (15.3-44.8); Magnesium 1.8 mg/dL (1.8-2.4); Phosphorus 4.7 mg/dL (2.5-4.9); Protein, Total 6.7 g/dL (6.4-8.2); RBC Red Blood Cell Count 3.18 M/uL (4.33-5.43)
[2019-12-23] MEDS: ENOXAPARIN 40 MG/0.4 ML SQ SCH (08:21)
[2019-12-23] MEDS ORDERED: ALBUTEROL INHALER 60 PUFF/8 GM IH PRN (08:45)
[2019-12-23] MEDS ORDERED: ETANERCEPT 50 MG SQ SCH (08:45)
[2019-12-23] MEDS ORDERED: HOME MED 1 EA UNK (Losartan Potassium [Cozaar] 1 TAB) PO SCH (09:00)
[2019-12-23] MEDS ORDERED: METHOTREXATE 2.5 MG TAB PO SCH (09:00)
[2019-12-23] MEDS ORDERED: FUROSEMIDE 40 MG/4 ML VIAL IV SCH (09:00)
[2019-12-23] MEDS ORDERED: FUROSEMIDE 20 MG TABLET PO SCH (09:00)
[2019-12-23] MEDS ORDERED: predniSONE 10 MG TAB PO SCH (09:00)
[2019-12-23] MEDS ORDERED: DULERA 100/5 (MOMETASONE/FORMOTEROL) INHALER IH SCH (09:00)
--- NOTE | 2019-12-23 09:03 | P.HP ---
Certification for Inpatient Patient admitted to: Inpatient With expected LOS: >2 Midnights Patient will require the following post-hospital care: None Practitioner: I am a practitioner with admitting privileges, knowledge of patient current condition, hospital course, and medical plan of care. Services: Services provided to patient in accordance with Admission requirements found in Title 42 Section 412.3 of the Code of Federal Regulations Patient History Date of Service: 12/22/19 Reason for admission: Dyspnea History of Present Illness: Patient is a 69yo gentleman who came to the hospital after he had a right upper lobectomy. Patient had a lung mass that was seen on PET scan. Patient been on immune suppressants for rheumatologic disease. Surgery went well and he was doing well postoperatively; however, when he got home he noticed with short of breath. It did not get better over the course of 12 in 24 hr so he came to the ER. In the ER he did not have any abnormal findings on imaging studies except for hydrothorax from the area where the lobectomy was completed. Incisions look clean. Patient will be admitted for observation and to workup his hypoxemia. His BNP is elevated and he has pulmonary edema. Will continue to diurese and will need to get an echocardiogram as well. Allergies lisinopril Allergy (Verified 12/22/19 22:44) Rash Home Medications: Alendronate Sodium 35 mg PO EVERY 7TH DAY 12/22/19 Aspirin 81 mg PO DAILY 12/22/19 Atorvastatin Calcium [Lipitor] 80 mg PO BEDTIME 12/22/19 Clopidogrel Bisulfate [Plavix*] 1 tab PO DAILY 12/22/19 Etanercept [Enbrel] 50 mg SQ SEECOM 12/22/19 Folic Acid 1 mg PO DAILY 12/22/19 Hydroxychloroquine Sulfate 1 tab PO DAILY 12/22/19 Losartan Potassium [Cozaar] 1 tab PO DAILY 12/22/19 Methotrexate [Methotrexate*] 2.5 mg PO EVERY 7TH DAY 12/22/19 Metoprolol Succinate [Toprol Xl] 25 mg PO DAILY 12/22/19 Pantoprazole [Protonix Tab*] 20 mg PO DAILY 12/22/19 Tamsulosin [Flomax*] 1 tab PO DAILY 12/22/19 predniSONE [Prednisone*] 1 tab PO DAILY 12/22/19 - Past Medical/Surgical History Has patient received pneumonia vaccine in the past: Yes Diabetic: No -: CAD -: Lung Cancer -: Copd -: rheumatoid arthritis -: cataract surgery -: lobectomy-RUL - Family History Father Family History: Reviewed- Non-Contributory - Social History Smoking Status: Former smoker Alcohol use: No CD- Drugs: No Caffeine use: No Place of Residence: Home Review of Systems 10-point ROS is otherwise unremarkable Physical Examination - Vital Signs Temperature: 98.6 F Blood Pressure: 139/67 Pulse: 88 Respirations: 18 Pulse Ox (%): 96 - Physical Exam General: Alert, In no apparent distress, Oriented x3 HEENT: Atraumatic, PERRLA, Mucous membr. moist/pink, EOMI, Sclerae nonicteric Neck: Supple, 2+ carotid pulse no bruit, No LAD, Without JVD or thyroid abnormality Respiratory: Diminished, Expiratory wheezes, Rhonchi/gurgles Cardiovascular: Regular rate/rhythm, Normal S1 S2, Systolic murmur Gastrointestinal: Normal bowel sounds, Soft and benign, Non-distended, No tenderness Musculoskeletal: No clubbing, No swelling, No tenderness Integumentary: No rashes Neurological: Normal gait, Normal speech, Normal strength at 5/5 x4 extr, Normal tone, Sensation intact, Cranial nerves 3-12 intact, Normal affect Lymphatics: No axilla or inguinal lymphadenopathy - Studies Laboratory Data (last 24 hrs) 12/22/19 17:10: PT 11.7, INR 0.99 12/22/19 17:10: WBC 4.3, Hgb 10.1 L, Hct 30.7 L, Plt Count 186 12/22/19 17:10: Sodium 138, Potassium 4.0, BUN 11, Creatinine 0.89, Glucose 130 H, Magnesium 1.8, Total Bilirubin 0.5, AST 18, ALT 22, Alkaline Phosphatase 90 Assessment & Plan - Problems (Diagnosis) (1) Status post partial lobectomy of lung Current Visit: Yes Status: Acute (2) History of coronary artery disease Current Visit: Yes Status: Acute (3) Lung cancer Current Visit: Yes Status: Acute (4) COPD (chronic obstructive pulmonary disease) Current Visit: Yes Status: Acute Qualifiers: COPD type: COPD with acute exacerbation Qualified Code(s): J44.1 - Chronic obstructive pulmonary disease with (acute) exacerbation (5) Rheumatoid arthritis Current Visit: Yes Status: Acute (6) Hypoxemia Current Visit: Yes Status: Acute - Plan Plan: 1. Continue with albuterol and Atrovent nebs 2. Continue with IV steroids 3. Echocardiogram 4. Pulmonary consultation 5. Room air O2 sats 6. Repeat chest x-ray in the morning 7. IS 8. PE evaluation if hypoxemia not improving 9. Physical therapy consultation 10. GI and DVT prophylaxis Discharge Plan: Home Plan to discharge in: Greater than 2 days - Advance Directives Does patient have a Living Will: No Does patient have a Durable POA for Healthcare: No - Code Status/Comfort Care Code Status Assessed: Yes Code Status: Full Code Critical Care: No Time Spent Managing PTS Care (In Minutes): 45
--- NOTE | 2019-12-23 09:41 | RAD REPORT ---
EXAM DESCRIPTION: RAD - Chest Pa And Lat (2 Views) - 12/23/2019 9:15 am CLINICAL HISTORY: follow up right upper lobectomyshortness of breath COMPARISON: CT chest December 21, portable chest December 21 TECHNIQUE: Frontal and lateral views of the chest were obtained. FINDINGS: The lungs are normal volume. Interstitial pattern is increased slightly over comparison. B ilateral costophrenic angle blunting is present. Interstitial pattern could indicate a mild edema. Pe rihilar consolidated mass density and right peritracheal density unchanged from prior imaging. This a ppears be postsurgical in nature based on the CT study. The right-side apical hydropneumothorax seen on CT imaging is not clearly identifiable on plain film. Heart size is normal and central vasculature is within normal limits. No left-sided pneumothorax. No left-sided consolidation. No acute bony finding noted. No aortic abnormality. IMPRESSION: Right perihilar and peritracheal postsurgical mass density unchanged from prior imaging. Right apical hydropneumothorax is not identifiable on plain film and believed to be radiographically occult. Interstitial pattern is mildly increased over comparison. Patient can be monitored for interstitial e corina.
[2019-12-23] MEDS ORDERED: METHYLPREDNISOLONE 125 MG INJ IV ONE (10:00)
[2019-12-23] MEDS: ASPIRIN 81 MG CHEWABLE TABLET PO SCH (11:12)
[2019-12-23] MEDS: PANTOPRAZOLE 40MG TABLET PO SCH (11:13)
[2019-12-23] MEDS: FOLIC ACID 1 MG TABLET PO SCH (11:13)
[2019-12-23] MEDS: TAMSULOSIN 0.4 MG SR CAP PO SCH (11:13)
[2019-12-23] MEDS: CLOPIDOGREL 75 MG TABLET PO SCH (11:14)
[2019-12-23] MEDS: METOPROLOL XL 25 MG TAB PO SCH (11:14)
[2019-12-23] MEDS: LOSARTAN POTASSIUM 50 MG TABLET PO SCH (11:16)
[2019-12-23] MEDS: HYDROXYCHLOROQUINE 200MG TAB PO SCH (11:52)
[2019-12-23] MEDS: predniSONE 20 MG TAB PO SCH ×2 (11:53→20:16)
--- NOTE | 2019-12-23 11:58 | P.CNS ---
Date of Consult: 12/23/19 Chief Complaint: Dyspnea History of Present Illness: Patient is 69 years of age recently underwent a right upper lobe lobectomy on when is day 8 [facility] was discharge was doing well prior to discharge yesterday was ambulating and went to sleep woke up this morning spell of some short shortness of breath denies any fever chills is wheezing coughing Allergies lisinopril Allergy (Verified 12/22/19 22:44) Rash Home Medications: Alendronate Sodium 35 mg PO EVERY 7TH DAY 12/22/19 Aspirin 81 mg PO DAILY 12/22/19 Atorvastatin Calcium [Lipitor] 80 mg PO BEDTIME 12/22/19 Clopidogrel Bisulfate [Plavix*] 1 tab PO DAILY 12/22/19 Etanercept [Enbrel] 50 mg SQ SEECOM 12/22/19 Folic Acid 1 mg PO DAILY 12/22/19 Hydroxychloroquine Sulfate 1 tab PO DAILY 12/22/19 Losartan Potassium [Cozaar] 1 tab PO DAILY 12/22/19 Methotrexate [Methotrexate*] 2.5 mg PO EVERY 7TH DAY 12/22/19 Metoprolol Succinate [Toprol Xl] 25 mg PO DAILY 12/22/19 Pantoprazole [Protonix Tab*] 20 mg PO DAILY 12/22/19 Tamsulosin [Flomax*] 1 tab PO DAILY 12/22/19 predniSONE [Prednisone*] 1 tab PO DAILY 12/22/19 - Past Medical/Surgical History Diabetic: No -: heart attack -: lung ca -: slight copd -: rheumatoid arthritis -: cataract surgery -: lobectomy-RUL - Family History Father Family History: Reviewed- Non-Contributory - Social History Alcohol use: No CD- Drugs: No Caffeine use: No Place of Residence: Home Review of Systems General: Weakness Respiratory: Cough, Shortness of Breath Physical Examination Temp Pulse Resp BP Pulse Ox 98.6 F 88 18 139/67 96 12/23/19 09:03 12/23/19 11:14 12/23/19 09:03 12/23/19 11:14 12/23/19 09:03 General: Alert, Oriented x3, Mild distress Respiratory: Expiratory wheezes Cardiovascular: No edema, Regular rate/rhythm Gastrointestinal: Normal bowel sounds, Soft and benign Laboratory Data (last 24 hrs) 12/22/19 17:10: PT 11.7, INR 0.99 12/22/19 17:10: WBC 4.3, Hgb 10.1 L, Hct 30.7 L, Plt Count 186 12/22/19 17:10: Sodium 138, Potassium 4.0, BUN 11, Creatinine 0.89, Glucose 130 H, Magnesium 1.8, Total Bilirubin 0.5, AST 18, ALT 22, Alkaline Phosphatase 90 - Problems (1) Shortness of breath Current Visit: Yes Status: Acute Plan: Patient is 69 years of age status post right upper lobe lobectomy on when is day a went home became short of breath came to the emergency rule admitted with wheezing patient does not have any bronchodilators at home increase the dose of his steroids him some bronchodilators possible discharge in the morning he was doing fine and [facility] prior to discharge labs all reviewed
[2019-12-23] MEDS: ALBUTEROL 2.5 MG/3 ML NEB SOL IH SCH ×3 (12:00→20:00)
[2019-12-23] MEDS ORDERED: METHYLPREDNISOLONE 40 MG INJ IV SCH (12:00)
[2019-12-23] MEDS ORDERED: ALBUTEROL 2.5 MG/3 ML NEB SOL ONE (12:05)
[2019-12-23] MEDS ORDERED: IPRATROPIUM BROM 0.5MG/2.5ML ONE (12:05)
--- NOTE | 2019-12-23 12:31 | P.PN ---
Subjective Date of Service: 12/23/19 Primary Care Provider: Dr. Nowak; [facility] Surgery-Dr. Dempsey Chief Complaint: Dyspnea Subjective: Improving, Doing well Physical Examination - Vital Signs Temperature: 98.6 F Blood Pressure: 139/67 Pulse: 88 Respirations: 18 Pulse Ox (%): 96 - Physical Exam General: Alert, In no apparent distress, Oriented x3, Cooperative HEENT: Atraumatic Neck: Supple Respiratory: Clear to auscultation bilaterally, Expiratory wheezes (Mild wheezing posteriorly) Cardiovascular: Normal pulses, Regular rate/rhythm Gastrointestinal: Normal bowel sounds, Soft and benign, Non-distended, No tenderness, No masses, No rebound, No guarding Musculoskeletal: No erythema, No tenderness, No warmth Integumentary: No erythema, No warmth, No cyanosis Neurological: Normal speech, Normal strength at 5/5 x4 extr, Normal tone, Normal affect - Studies Laboratory Data (last 24 hrs) 12/22/19 17:10: PT 11.7, INR 0.99 12/22/19 17:10: WBC 4.3, Hgb 10.1 L, Hct 30.7 L, Plt Count 186 12/22/19 17:10: Sodium 138, Potassium 4.0, BUN 11, Creatinine 0.89, Glucose 130 H, Magnesium 1.8, Total Bilirubin 0.5, AST 18, ALT 22, Alkaline Phosphatase 90 Medications List Reviewed: Yes Assessment & Plan Discharge Plan: Home Plan to discharge in: 24 Hours Physician Review Additional Text: Impression: Shortness of breath status post recent right upper lobe lobectomy for lung cancer with history of COPD Rheumatoid arthritis on immunosuppressive therapy Hypertension Hyperlipidemia CAD BPH Plan: Shortness of breath status post recent right upper lobe lobectomy for lung cancer with history of COPD: Patient doing well this time. Will increase prednisone. Continue COPD treatment. Doubt CHF. Discontinue IV diuretic therapy. Wean off oxygen. Case discussed at length with pulmonology. Patient had recent surgery. Anticipate improvement over the next 24 hr. If not able to wean off oxygen then patient will likely have to stay to set up home oxygen with social services assistant. Case also discuss with his PCP. Rheumatoid arthritis on immunosuppressive therapy: Continue medication Hypertension: Continue medication. Will monitor and adjust appropriately. Hyperlipidemia: Continue home medication CAD: Continue medication BPH: Continue medication Time Spent Managing Pts Care (In Minutes): 55
[2019-12-23] MEDS: IPRATROPIUM BROM 0.5MG/2.5ML NEB SCH ×2 (13:01→20:00)
[2019-12-23] MEDS ORDERED: ATORVASTATIN 80 MG TAB PO SCH (21:00)
[2019-12-24] MEDS: ALBUTEROL 2.5 MG/3 ML NEB SOL IH SCH ×2 (00:50→07:39)
[2019-12-24] MEDS: IPRATROPIUM BROM 0.5MG/2.5ML NEB SCH ×2 (00:50→07:39)
[2019-12-24] MEDS: HYDROXYCHLOROQUINE 200MG TAB PO SCH (07:50)
[2019-12-24] MEDS: TAMSULOSIN 0.4 MG SR CAP PO SCH (07:52)
[2019-12-24] MEDS: ASPIRIN 81 MG CHEWABLE TABLET PO SCH (07:52)
[2019-12-24] MEDS: predniSONE 20 MG TAB PO SCH (07:52)
[2019-12-24] MEDS: CLOPIDOGREL 75 MG TABLET PO SCH (07:53)
[2019-12-24] MEDS: METOPROLOL XL 25 MG TAB PO SCH (07:53)
[2019-12-24] MEDS: PANTOPRAZOLE 40MG TABLET PO SCH (07:53)
[2019-12-24] MEDS: FOLIC ACID 1 MG TABLET PO SCH (07:53)
[2019-12-24] MEDS: ENOXAPARIN 40 MG/0.4 ML SQ SCH (07:54)
[2019-12-24] MEDS: LOSARTAN POTASSIUM 50 MG TABLET PO SCH (07:54)
[2019-12-24 08:22] VITALS: O2SAT 92
--- NOTE | 2019-12-24 09:16 | P.PN ---
Subjective Date of Service: 12/24/19 Primary Care Provider: Dr. Nowak; [facility] Surgery-Dr. Dempsey Chief Complaint: Dyspnea Subjective: Improving (Patient is doing much better he is wheezing is decreased room-air sats around 95% no new complaints) Review of Systems Unremarkable Physical Examination - Vital Signs Temperature: 97.7 F Blood Pressure: 150/60 Pulse: 80 Respirations: 18 Pulse Ox (%): 100 - Physical Exam General: Alert, Oriented x3 HEENT: Atraumatic Neck: Supple Respiratory: Clear to auscultation bilaterally - Studies Medications List Reviewed: Yes Assessment & Plan - Problems (Diagnosis) (1) Shortness of breath Current Visit: Yes Status: Acute Plan: Patient admitted with dyspnea possible postoperative respiratory complication with wheezing doing much better can be discharged home on Advair 251 puff twice a day and patient advice to increase prednisone to 10 mg twice a day for a week then decrease it to 5 mg which is his baseline dose for his rheumatoid arthritis stable for discharge follow up with me in 2 weeks prescriptions faxed to the pharmacy he is to use ProAir p.r.n.
[2019-12-24 14:22] VITALS: BP 150/68; TEMP 97
--- NOTE | 2019-12-25 01:55 | P.DS ---
Discharge Date: 12/24/19 Primary Care Provider: Dr. Nowak; [facility] Surgery-Dr. Dempsey Disposition: ROUTINE DISCHARGE Discharge Condition: FAIR Reason for Admission: Dyspnea Consultations: Pulmonary - Problems (1) Status post partial lobectomy of lung Status: Acute (2) History of coronary artery disease Status: Acute (3) Lung cancer Status: Acute (4) COPD (chronic obstructive pulmonary disease) Status: Acute Qualifiers: COPD type: COPD with acute exacerbation Qualified Code(s): J44.1 - Chronic obstructive pulmonary disease with (acute) exacerbation (5) Rheumatoid arthritis Status: Acute (6) Hypoxemia Status: Acute Brief History of Present Illness: Patient is a 69yo gentleman who came to the hospital after he had a right upper lobectomy. Patient had a lung mass that was seen on PET scan. Patient been on immune suppressants for rheumatologic disease. Surgery went well and he was doing well postoperatively; however, when he got home he noticed with short of breath. It did not get better over the course of 12 in 24 hr so he came to the ER. In the ER he did not have any abnormal findings on imaging studies except for hydrothorax from the area where the lobectomy was completed. Incisions look clean. Patient will be admitted for observation and to workup his hypoxemia. His BNP is elevated and he has pulmonary edema. Will continue to diurese and will need to get an echocardiogram as well. Hospital Course: Patient done well during hospital stay. Patient's respiratory status has improved. Patient is oxygenating much better. At this time, patient is stable for discharge with outpatient follow-up. Return to the ER if his symptoms worse n. Will check him for home oxygen prior to discharging. If he qualifies will need to get this set up before he goes home. Vital Signs/Physical Exam: Temp Pulse Resp BP Pulse Ox 97.0 F 91 H 18 150/68 H 96 12/24/19 12:00 12/24/19 12:00 12/24/19 12:00 12/24/19 12:00 12/24/19 12:00 General: Alert, In no apparent distress, Oriented x3 Laboratory Data at Discharge: WBC 4.5 K/uL (4.3-10.9) 12/23/19 05:56 Hgb 9.5 g/dL (13.6-17.9) L 12/23/19 05:56 Hct 28.0 % (39.6-49.0) L 12/23/19 05:56 Plt Count 173 K/uL (152-406) 12/23/19 05:56 PT 11.7 SECONDS (9.5-12.5) 12/22/19 17:10 INR 0.99 12/22/19 17:10 Sodium 140 mmol/L (136-145) 12/23/19 05:56 Potassium 4.0 mmol/L (3.5-5.1) 12/23/19 05:56 BUN 12 mg/dL (7-18) 12/23/19 05:56 Creatinine 1.06 mg/dL (0.55-1.3) 12/23/19 05:56 Glucose 125 mg/dL (74-106) H 12/23/19 05:56 Phosphorus 4.7 mg/dL (2.5-4.9) 12/23/19 05:56 Magnesium 1.8 mg/dL (1.8-2.4) 12/23/19 05:56 Total Bilirubin 0.4 mg/dL (0.2-1.0) 12/23/19 05:56 AST 15 U/L (15-37) 12/23/19 05:56 ALT 20 U/L (12-78) 12/23/19 05:56 Alkaline Phosphatase 81 U/L (45-117) 12/23/19 05:56 Triglycerides 126 mg/dL (<150) 12/23/19 05:56 Cholesterol 97 mg/dL (<200) 12/23/19 05:56 HDL Cholesterol 51 mg/dL (40-60) 12/23/19 05:56 Cholesterol/HDL Ratio 1.90 12/23/19 05:56 Home Medications: Alendronate Sodium 35 mg PO EVERY 7TH DAY 12/22/19 Aspirin 81 mg PO DAILY 12/22/19 Atorvastatin Calcium [Lipitor] 80 mg PO BEDTIME 12/22/19 Clopidogrel Bisulfate [Plavix*] 1 tab PO DAILY 12/22/19 Etanercept [Enbrel] 50 mg SQ SEECOM 12/22/19 Folic Acid 1 mg PO DAILY 12/22/19 Hydroxychloroquine Sulfate 1 tab PO DAILY 12/22/19 Losartan Potassium [Cozaar] 1 tab PO DAILY 12/22/19 Methotrexate [Methotrexate*] 2.5 mg PO EVERY 7TH DAY 12/22/19 Metoprolol Succinate [Toprol Xl] 25 mg PO DAILY 12/22/19 Pantoprazole [Protonix Tab*] 20 mg PO DAILY 12/22/19 Tamsulosin [Flomax*] 1 tab PO DAILY 12/22/19 predniSONE [Prednisone*] 1 tab PO DAILY 12/22/19 Albuterol Sulfate [Proair Hfa] 8.5 gm IH Q8HP #240 hfa.[email or web address] 12/24/19 Fluticasone/Salmeterol [Advair 250-50 Diskus] 1 each IH BID #60 blst.w.dev 12/24/19 New Medications: Fluticasone/Salmeterol [Advair 250-50 Diskus] 1 each IH BID #60 blst.w.dev Albuterol Sulfate [Proair Hfa] 8.5 gm IH Q8HP #240 hfa.[email or web address] Patient Discharge Instructions: Advair 250 puff twice a day faxed to the pharmacy patient to increase his prednisone 10 mg twice a day for a week and then decrease it to 5 mg once a day follow up with me next week Diet: AHA Activity: Fall precautions Followup: Antonio James MD [ACTIVE - CAN ADMIT] - Time spent managing pt's care (in minutes): 25
== END 2019-12-24 12:07 | disposition home or self-care (01) | DRG 192 ==
LOC: ER 16:32 → ERHOLD 21:36 → OBSVTOIN 21:36 → 2ND 21:51 → OBSVTOIN 12-23 16:30 → INTOOBSV 12-23 16:30
PROVIDERS: ADMIT Hospitalist; ATTEND Hospitalist
DX: J44.1 Chronic obstructive pulmonary disease with (acute) exacerbation (principal); M06.9 Rheumatoid arthritis, unspecified; N40.0 Benign prostatic hyperplasia without lower urinary tract symptoms; I10 Essential (primary) hypertension; E78.5 Hyperlipidemia, unspecified; I25.10 Atherosclerotic heart disease of native coronary artery without angina pectoris; R09.02 Hypoxemia; Z79.02 Long term (current) use of antithrombotics/antiplatelets; Z79.52 Long term (current) use of systemic steroids; Z79.899 Other long term (current) drug therapy; Z85.118 Personal history of other malignant neoplasm of bronchus and lung; Z90.49 Acquired absence of other specified parts of digestive tract; Z88.8 Allergy status to other drugs, medicaments and biological substances; Z87.891 Personal history of nicotine dependence; Z79.82 Long term (current) use of aspirin; I25.2 Old myocardial infarction
CPT/HCPCS: 36415; 71045; 71046; 71260; 80048; 80053; 80061; 80076; 81003; 83605; 83735; 83880; 84100; 84145; 84484; 85025; 85610; 87040; 93005; 94640; 94760; 96374; 99285; J1650; J1940; J2930; J7512; J7606; J8610; Q9967